=== PATIENT | male | born 1945 | race Caucasian/White ===

== ENCOUNTER 2021-08-11 15:50 | Inpatient (IN) ==
[2021-08-11] MEDS ORDERED: MoRPHine SULFATE 4 MG/ML 1 ML CARP\\VIAL IV STA ×2 (16:22→18:37)
[2021-08-11] MEDS ORDERED: cefTRIAXone SODIUM 2,000 MG/70 ML BAG IV STA (16:22)
[2021-08-11] MEDS ORDERED: ONDANSETRON INJ 2 MG/ML 2 ML VIAL IV STA (16:22)
[2021-08-11] MEDS ORDERED: KETOROLAC TROMETHAMINE 15 MG/ML VIAL IV STA (16:22)
--- NOTE | 2021-08-11 16:30 | Emergency Department Note ---
Impression & Plan SOB (shortness of breath), Weakness, Bilateral leg pain, Edema, Cellulitis ED Provider Note NAME: NEDA CURTIS AGE: 76 SEX: M : 1945 ARRIVES VIA: Walk-In INFORMANT: [Patient][son] ED PROVIDER(S): [Merrill Herrera MD] CHIEF COMPLAINT: Leg pain, weakness HISTORY OF PRESENT ILLNESS: The patient is a 76-year-old male who presents to the ER with bilateral leg pain that seems to be mostly in the thighs and knees. It has been ongoing for some time but has worsened in the last few days. He cannot sleep because of the pain, he cannot walk because of the pain. The pain seems a bit better when he first stands but then, his legs are too weak to stand for too long. Patient states the pain is severe at times. There has been no fever, no fall. No cough or congestion. The patient does feel short of breath with any type of exertion/ambulation. The patient has stopped his diuretic as he has a hard time with his urinary stream. His doctor is aware. The patient's son states that he has noticed some redness of the feet and toes, this is new. REVIEW OF SYSTEMS: See HPI for pertinent positives and negatives. A total of ten systems were reviewed and were otherwise negative. PMHx/PSHx: See Below SOCIAL HISTORY: See Below. PHYSICAL EXAM: GENERAL: Patient is in no acute distress. HEENT: No acute trauma, normocephalic atraumatic, mucous membranes moist, no nasal congestion, no scleral icterus. NECK: No stridor, no adenopathy, no meningismus, trachea is midline. LUNGS: Clear to auscultation bilaterally, no wheeze, no rhonchi, breath sounds equal. HEART: Without murmurs gallops or rubs, regular rate and rhythm. ABDOMEN: Soft, nontender, bowel sounds positive, no hernias, no peritonitis. EXTREMITIES: No cyanosis. Bilateral pedal edema which is significant. Patient does have erythema of both feet and of all his toes. Dry scaly skin is present about the lower extremities. There is some warmth to both feet. No drainage. NEUROLOGIC: Oriented x 3, no acute motor or sensory deficits, no focal weakness. SKIN: No rash, no jaundice, no diaphoresis. DIFFERENTIAL DIAGNOSIS: Cellulitis, DVT, edema, anemia, neurovascular compromise, hematoma, electrolyte imbalance, CHF, fluid overload, thyroid disorder, among others EMERGENCY DEPARTMENT COURSE/PROCEDURES: ECG: Indication was weakness. The ECG shows what appears to be a normal sinus rhythm with a rate of 77. There is some baseline artifact. There is no ST elevation, no PVCs. The QTc is 427. Continuous Cardiac Monitoring: An order was placed for continuous cardiac monitoring. The monitor shows a rate of 79 with normal sinus rhythm. MEDICAL DECISION MAKING: There is no leukocytosis or concerning anemia. There is a normal platelet count. No coagulopathy. Creatinine was a bit high at 1.49 but not in need of emergent attention. No concerning electrolyte abnormality. Lactic acid level was not elevated making ischemia/sepsis less likely. No concerning liver enzyme elevation. The patient appeared to be in a euthyroid state. ECG shows a normal sinus rhythm, no obvious ischemia. Cardiac enzyme testing x1 is not consistent with acute cardiac injury. Urinalysis does not show evidence for infection. Chest x-ray does not show pneumonia or obvious CHF. Bilateral lower extremity venous and arterial ultrasounds are pending. On exam, the patient had significant edema to both lower extremities with redness and warmth to both feet. The patient appears to be quite fluid overloaded. He may have early cellulitis of both feet. He has become weak, short of breath and can no longer really ambulate. A hospitalization is warranted. Patient was given IV morphine for pain as needed. He was given IV Zofran for nausea. He was given IV Toradol. He was given IV ceftriaxone and IV Lasix. I did speak with case management, I talked to the patient about his findings. A hospital stay for his findings/complaints is warranted. We await the results of the venous and arterial lower extremity ultrasounds. Past Med/Surg History Medical History Carotid artery hypersensitivity Trigeminal neuralgia pain Social History Smoking Status: Former smoker Preferred Language: Maltese Feels Safe at Home: Yes Allergies Allergies Allergy/AdvReac Type Severity Reaction Status Date / Time UNKNOWN ANTIBIOTIC AdvReac Severe GI SYMPTOMS Uncoded 01/19/16 16:11 Home Meds Home Medications Medication Instructions Recorded Confirmed ACID REFLEX PILL 1 tab PO DAILY #0 01/19/16 ASPIRIN (ASPIRIN EC) 325 mg PO DAILY #0 01/19/16 DORZOLAMIDE HCL-TIMOLOL MALEAT 1 drp OPB BID #10 ml 01/19/16 (COSOPT OPH) Propranolol (Inderal) 40 mg PO BID #0 tab 01/19/16 Results & Data (ED) Vital Signs Vital Signs - 24 hr 08/11/21 15:53 08/11/21 16:59 08/11/21 17:45 Temperature 36.2 C L Temperature Source Temporal Artery Scan Pulse Rate 87 Pulse Rate [Apical] 79 Pulse Rate from SpO2 Sensor Pulse Rhythm Regular Pulse Strength Normal Respiratory Rate 20 19 Respiratory Effort / Characteristics Non-Labored Spontaneous Respiratory Depth Normal Respiratory Pattern Regular Blood Pressure 150/76 H Blood Pressure [Right Arm] 137/65 Blood Pressure Mean 100 Blood Pressure Mean [Right Arm] 89 Blood Pressure Position Sitting Blood Pressure Position [Right Arm] Lying Pulse Oximetry 97 97 Oxygen Delivery Method Room Air Room Air Room Air Sepsis Recent Fever Within 48 Hours No Sepsis New/Unexplained Change in Mental Status No Sepsis Action Taken by Nursing No Action Required 08/11/21 17:53 08/11/21 18:02 Temperature Temperature Source Pulse Rate 90 74 Pulse Rate [Apical] Pulse Rate from SpO2 Sensor 73 Pulse Rhythm Pulse Strength Respiratory Rate 21 16 Respiratory Effort / Characteristics Respiratory Depth Respiratory Pattern Blood Pressure 133/63 Blood Pressure [Right Arm] Blood Pressure Mean 86 Blood Pressure Mean [Right Arm] Blood Pressure Position Blood Pressure Position [Right Arm] Pulse Oximetry 95 Oxygen Delivery Method Sepsis Recent Fever Within 48 Hours Sepsis New/Unexplained Change in Mental Status Sepsis Action Taken by [facility] Medications Current Medication List: was personally reviewed by me Laboratory Data Attestation: I reviewed the patient's lab results. Result diagrams: 08/11/21 16:50 08/11/21 16:50 Lab Results 08/11/21 08/11/21 08/11/21 Range/Units 16:50 16:50 16:50 WBC 7.27 (4.8-10.8) K/uL RBC 4.66 L (4.7-6.1) M/uL Hgb 14.3 (14.0-18.0) g/dL Hct 42.0 (42-52) % MCV 90.1 (80-100) fL MCH 30.7 (25-34) pg MCHC 34.0 (32-36) g/dL RDW Std Deviation 44.6 (36.4-46.3) fL RDW Coeff of Ernie 13.7 (11.5-14.5) % Plt Count 241 (130-400) K/uL MPV 9.3 (7.4-10.4) fL Immature Gran % (Auto) 0.3 % Neut % (Auto) 70.9 % Lymph % (Auto) 19.1 % [place] % (Auto) 5.4 % Eos % (Auto) 3.9 % Baso % (Auto) 0.4 % Neut # (Auto) 5.16 (1.4-6.5) K/uL Lymph # (Auto) 1.39 (1.2-3.4) K/uL [place] # (Auto) 0.39 (0.11-0.59) K/uL Eos # (Auto) 0.28 (0-0.5) K/uL Baso # (Auto) 0.03 (0-0.2) K/uL Immature Gran # (Auto) 0.02 (0.00-0.02) K/uL PT 10.4 (9.0-12.0) Seconds INR 1.0 (0.9-1.1) APTT 22.2 (21.0-31.0) Seconds PTT Ratio 0.8 Sodium 137 (136-145) mmol/L Potassium 4.3 (3.5-5.1) mmol/L Chloride 106 (98-107) mmol/L Carbon Dioxide 23 (21-32) mmol/L Anion Gap 8 (3-11) BUN 29 H (6-23) mg/dl Creatinine 1.49 H (0.6-1.4) mg/dl Est Cr Clr Drug Dosing Not Reportable Est GFR ( Amer) 52.8 ml/min Est GFR (Non-Af Amer) 45.6 ml/min BUN/Creatinine Ratio 19.5 (10-20) Glucose 113 H (70-99(Fasting)) mg/dl Lactate (0.4-2.0) mmol/L Calcium 9.1 (8.5-10.1) mg/dl Magnesium 2.0 (1.7-2.4) mg/dl Total Bilirubin 0.4 (0.2-1.0) mg/dl AST 14 (13-39) U/L ALT 12 (7-52) U/L Alkaline Phosphatase 80 (34-104) U/L Troponin I < 0.03 (0-0.04) ng/ml Total Protein 7.6 (6.0-8.3) gm/dl Albumin 4.1 (3.4-5.0) gm/dl Globulin 3.5 (2.5-4.0) gm/dl Albumin/Globulin Ratio 1.2 (0.9-2) TSH (0.300-4.500) uIu/ml Urine Color Urine Appearance (Clear) Urine pH (4.5-7.5) Ur Specific Sinclair (1.000-1.030) Urine Protein (Negative) Urine Glucose (UA) (Negative) Urine Ketones (Negative) Urine Blood (Negative) Urine Nitrite (Negative) Urine Bilirubin (Negative) Urine Urobilinogen (Negative) Ur Leukocyte Esterase (Negative) Urine WBC (Auto) (0-5) /hpf Urine RBC (Auto) (0-4) /hpf U Hyaline Cast (Auto) (0-5) /lpf U Epithel Cells (Auto) (0-5) /lpf Urine Bacteria (Auto) (Negative) 08/11/21 08/11/21 08/11/21 Range/Units 16:50 16:50 17:58 WBC (4.8-10.8) K/uL RBC (4.7-6.1) M/uL Hgb (14.0-18.0) g/dL Hct (42-52) % MCV (80-100) fL MCH (25-34) pg MCHC (32-36) g/dL RDW Std Deviation (36.4-46.3) fL RDW Coeff of Ernie (11.5-14.5) % Plt Count (130-400) K/uL MPV (7.4-10.4) fL Immature Gran % (Auto) % Neut % (Auto) % Lymph % (Auto) % [place] % (Auto) % Eos % (Auto) % Baso % (Auto) % Neut # (Auto) (1.4-6.5) K/uL Lymph # (Auto) (1.2-3.4) K/uL [place] # (Auto) (0.11-0.59) K/uL Eos # (Auto) (0-0.5) K/uL Baso # (Auto) (0-0.2) K/uL Immature Gran # (Auto) (0.00-0.02) K/uL PT (9.0-12.0) Seconds INR (0.9-1.1) APTT (21.0-31.0) Seconds PTT Ratio Sodium (136-145) mmol/L Potassium (3.5-5.1) mmol/L Chloride (98-107) mmol/L Carbon Dioxide (21-32) mmol/L Anion Gap (3-11) BUN (6-23) mg/dl Creatinine (0.6-1.4) mg/dl Est Cr Clr Drug Dosing Est GFR ( Amer) ml/min Est GFR (Non-Af Amer) ml/min BUN/Creatinine Ratio (10-20) Glucose (70-99(Fasting)) mg/dl Lactate 0.6 (0.4-2.0) mmol/L Calcium (8.5-10.1) mg/dl Magnesium (1.7-2.4) mg/dl Total Bilirubin (0.2-1.0) mg/dl AST (13-39) U/L ALT (7-52) U/L Alkaline Phosphatase (34-104) U/L Troponin I (0-0.04) ng/ml Total Protein (6.0-8.3) gm/dl Albumin (3.4-5.0) gm/dl Globulin (2.5-4.0) gm/dl Albumin/Globulin Ratio (0.9-2) TSH 2.269 (0.300-4.500) uIu/ml Urine Color Yellow Urine Appearance Clear (Clear) Urine pH 5.0 (4.5-7.5) Ur Specific Sinclair 1.018 (1.000-1.030) Urine Protein 1+ H (Negative) Urine Glucose (UA) Negative (Negative) Urine Ketones Negative (Negative) Urine Blood Negative (Negative) Urine Nitrite Negative (Negative) Urine Bilirubin Negative (Negative) Urine Urobilinogen Negative (Negative) Ur Leukocyte Esterase Negative (Negative) Urine WBC (Auto) 1-5 (0-5) /hpf Urine RBC (Auto) 0-4 (0-4) /hpf U Hyaline Cast (Auto) 1-5 (0-5) /lpf U Epithel Cells (Auto) 0-5 (0-5) /lpf Urine Bacteria (Auto) Negative (Negative) Administered Medications Discontinued Medications Furosemide (Furosemide 40 Mg/4 Ml Vial) 60 mg IV ONE ONE Stop: 08/11/21 17:34 Last Admin: 08/11/21 18:05 Dose: 60 mg Documented by: [id number] Ceftriaxone Sodium (Rocephin) 2,000 mg in 70 mls @ 140 mls/hr IV NOW STA Stop: 08/11/21 16:51 Last Infusion: 08/11/21 18:37 Dose: 0 mls/hr Documented by: [id number] Admin: 08/11/21 18:05 Dose: 140 mls/hr Documented by: [id number] Ketorolac Tromethamine (Ketorolac Tromethamine 15 Mg/Ml Vial) 15 mg IV NOW STA Stop: 08/11/21 16:23 Last Admin: 08/11/21 17:43 Dose: 15 mg Documented by: [id number] Morphine Sulfate (Morphine Sulfate 4 Mg/Ml 1 Ml Carp\Vial) 4 mg IV NOW STA Stop: 08/11/21 16:23 Last Admin: 08/11/21 17:43 Dose: 4 mg Documented by: [id number] Morphine Sulfate (Morphine Sulfate 4 Mg/Ml 1 Ml Carp\Vial) 4 mg IV NOW STA Stop: 08/11/21 18:38 Last Admin: 08/11/21 18:42 Dose: 4 mg Documented by: [id number] Ondansetron HCl (Ondansetron Inj 2 Mg/Ml 2 Ml Vial) 4 mg IV NOW STA Stop: 08/11/21 16:23 Last Admin: 08/11/21 17:43 Dose: 4 mg Documented by: [id number] Imaging Data Radiologist's Impression: Chest X-Ray 08/11/21 16:22 SINGLE VIEW CHEST CLINICAL HISTORY: Generalized weakness. FINDINGS: An AP, portable, upright chest radiograph is obtained. No prior studies are available for comparison at the time of dictation. The heart is top normal for projection noting atherosclerotic calcification of the thoracic aorta. Bibasilar opacities likely represent atelectasis. No large pleural eff usion is identified. No pneumothorax is seen. The skeletal structures are osteopenic. The bony thorax is grossly intact. IMPRESSION: Bibasilar opacities likely represent atelectasis. Clinical correlation will be required. ACT 112: Negative or not required by law. Electronically signed by: Merrill Phillip M.D. 08/11/2021 5:38 PM Bilateral arterial and venous lower extremity ultrasounds are pending. Discharge Plan Visit Data Chief Complaint: Leg Injury/Pain Stated Complaint: SHAKINESS, PAIN ABOVE BOTH KNEES ED Provider: Merrill Herrera Discharge Problem: SOB (shortness of breath), Weakness, Bilateral leg pain, Edema, Cellulitis Patient Disposition: Admitted As Inpatient Condition: Fair Forms Stand Alone Forms: [facility] [employer] Prescriptions Prescriptions: No Action ACID REFLEX PILL 1 tab PO DAILY Qty: 0 RF: 0 ASPIRIN (ASPIRIN EC) 325 MG tablet 325 mg PO DAILY Qty: 0 RF: 0 DORZOLAMIDE HCL-TIMOLOL MALEAT (COSOPT OPH) 1 GLENN SOLTAB 1 drp OPB BID Qty: 10 RF: 3 Propranolol (Inderal) 20 MG tablet 40 mg PO BID Qty: 0 RF: 0 Referrals Referrals: PCP,NO [Physician] - Discharge Problem: Edema Qualifiers: Edema type: unspecified Qualified Code(s): R60.9 - Edema, unspecified Cellulitis Qualifiers: Site of cellulitis: extremity Site of cellulitis of extremity: lower extremity Laterality: unspecified laterality Qualified Code(s): L03.119 - Cellulitis of unspecified part of limb
[2021-08-11 17:10] LABS: Basophils # (auto) 0.03 K/uL (0-0.2); Basophils % (auto) 0.4 %; Eosinophils # (auto) 0.28 K/uL (0-0.5); Eosinophils % (auto) 3.9 %; Hemoglobin 14.3 g/dL (14.0-18.0); Immature Granulocytes # (auto) 0.02 K/uL (0.00-0.02); Immature Granulocytes % (auto) 0.3 %; Lymphocytes # (auto) 1.39 K/uL (1.2-3.4); Lymphocytes % (auto) 19.1 %; Mean Corpuscular Hemoglobin 30.7 pg (25-34); Mean Corpuscular Volume 90.1 fL (80-100); Mean Platelet Volume 9.3 fL (7.4-10.4); Monocytes # (auto) 0.39 K/uL (0.11-0.59); Monocytes % (auto) 5.4 %; Neutrophils # (auto) 5.16 K/uL (1.4-6.5); Neutrophils % (auto) 70.9 %; Platelet Count 241 K/uL (130-400); RDW Coefficient of Variation 13.7 % (11.5-14.5); RDW Standard Deviation 44.6 fL (36.4-46.3); Red Blood Count 4.66 M/uL (4.7-6.1); White Blood Count 7.27 K/uL (4.8-10.8)
[2021-08-11 17:17] LABS: Partial Thromboplastin Ratio 0.8; Partial Thromboplastin Time 22.2 Seconds (21.0-31.0); Prothrombin Time 10.4 Seconds (9.0-12.0)
[2021-08-11 17:29] LABS: Troponin I < 0.03 ng/ml (0-0.04)
[2021-08-11 17:31] LABS: Alanine Aminotransferase 12 U/L (7-52); Albumin Globulin Ratio 1.2 (0.9-2); Albumin Level 4.1 gm/dl (3.4-5.0); Alkaline Phosphatase 80 U/L (34-104); Anion Gap 8 (3-11); Aspartate Aminotransferase 14 U/L (13-39); BUN Creatinine Ratio 19.5 (10-20); Bilirubin,Total 0.4 mg/dl (0.2-1.0); Blood Urea Nitrogen 29 mg/dl (6-23); Calcium 9.1 mg/dl (8.5-10.1); Carbon Dioxide 23 mmol/L (21-32); Chloride 106 mmol/L (98-107); Est GFR (African American) 52.8 ml/min; Est GFR (Non-African American) 45.6 ml/min; Globulin 3.5 gm/dl (2.5-4.0); Glucose 113 mg/dl (70-99(Fasting)); Potassium 4.3 mmol/L (3.5-5.1); Sodium 137 mmol/L (136-145); Total Protein 7.6 gm/dl (6.0-8.3)
[2021-08-11] MEDS ORDERED: FUROSEMIDE 40 MG/4 ML VIAL IV ONE (17:33)
--- NOTE | 2021-08-11 17:40 | XRay Report ---
SINGLE VIEW CHEST CLINICAL HISTORY: Generalized weakness. FINDINGS: An AP, portable, upright chest radiograph is obtained. No prior studies are available for c omparison at the time of dictation. The heart is top normal for projection noting atherosclerotic ca lcification of the thoracic aorta. Bibasilar opacities likely represent atelectasis. No large pleural effusion is identified. No pneumothorax is seen. The skeletal structures are osteopenic. The bony th orax is grossly intact. IMPRESSION: Bibasilar opacities likely represent atelectasis. Clinical correlation will be required. ACT 112: Negative or not required by law. Electronically signed by: eMrrill Phillip M.D. 08/11/2021 5:38 PM
[2021-08-11 18:09] LABS: Appearance Urine Clear (Clear); Bacteria Urine Automated Negative (Negative); Bilirubin Urine Negative (Negative); Blood Urine Negative (Negative); Color Urine Yellow; Epithelial Cell Urine Auto 0-5 /lpf (0-5); Glucose Urine UA Negative (Negative); Ketones Urine Negative (Negative); Leukocyte Esterase Urine Negative (Negative); Nitrite Urine Negative (Negative); Protein Urine 1+ (Negative); RBC Urine Automated 0-4 /hpf (0-4); Specific Gravity Urine 1.018 (1.000-1.030); Urobilinogen Urine Negative (Negative)
[2021-08-11] MEDS ORDERED: MoRPHine SULFATE 4 MG/ML 1 ML CARP\\VIAL IV PRN (18:37)
--- NOTE | 2021-08-11 19:56 | Ultrasound Report ---
ULTRASOUND BILATERAL LOWER EXTREMITY VENOUS CLINICAL HISTORY: Lower extremity edema. COMPARISON STUDY: No priors. TECHNIQUE: Real-time, grayscale, and color Doppler sonography of the deep veins of the right and left lower extremity was performed from the inguinal crease to the calf. Compression and augmentation wer e utilized. FINDINGS: There is no sonographic evidence of deep venous thrombosis identified in the right or left lower extremity. The common femoral, superficial femoral, and popliteal veins are patent and normally compressible bilaterally. The greater saphenous vein and the profunda femoris vein at the junction w ith the common femoral vein are clear in both legs. The visualized calf veins are patent bilaterally. IMPRESSION: There is no sonographic evidence of deep venous thrombosis identified in the right or lef t lower extremity. ACT 112: Negative or not required by law. Electronically signed by: Merrill Phillip M.D. 08/11/2021 7:54 PM
--- NOTE | 2021-08-11 21:05 | Ultrasound Report ---
ULTRASOUND BILATERAL LOWER EXTREMITY ARTERIAL CLINICAL HISTORY: Lower extremity edema and pain. COMPARISON STUDY: No priors. TECHNIQUE: Real-time grayscale and color Doppler sonography of the arteries of the right and left low er extremities performed from the inguinal crease to the foot. Ankle-brachial indices were not perfor med. FINDINGS: Right lower extremity: Atherosclerotic plaque and irregularity are seen throughout the arteries of th e right lower extremity. There are triphasic waveforms in the common femoral artery with velocities m easuring up to 133 cm/s. The profunda femoris artery is patent with velocities measuring up to 121 cm /s. There are triphasic to biphasic waveforms throughout the superficial femoral and popliteal arteri es. Velocities in the superficial femoral artery measure up to 123 cm/s in velocities in the poplitea l artery measure up to 68 cm/s. There is three-vessel runoff to the foot. Velocities in the calf susan john measure up to 110 cm/s. The dorsalis pedis artery is patent with velocities measuring up to 44 c m/s. Soft tissue edema is noted in the right leg. Left lower extremity: Atherosclerotic plaque and irregularity are seen throughout the arteries of the left lower extremity. There are triphasic waveforms in the left common femoral artery with velocitie s measuring up to 166 cm/s. The profunda femoris artery is patent with velocities measuring up to 150 cm/s. Triphasic to biphasic waveforms are seen throughout the left superficial femoral and popliteal arteries. There is slight blunting of the arterial upstroke in the superficial femoral and popliteal arteries. Velocities in the superficial femoral artery measure up to 185 cm/s, and velocities in the popliteal artery measure up to 72 cm/s. There is three-vessel runoff to the foot with blunted arteri al upstroke in the calf vessels. Velocities within the calf arteries measure up to 64 cm/s. The dorsa lis pedis artery is patent with velocities measuring up to 46 cm/s. Soft tissue edema is noted in the calf. IMPRESSION: Findings of peripheral vascular disease as above with no sonographic evidence of high-gra de stenosis or focal vessel occlusion throughout the arteries of the right or left lower extremity. Dictated: 08/11/2021 8:01 PM Transcribed: 08/11/2021 8:24 PM Dorinda [id number] [email or web address] Electronically signed by: Merrill Phillip M.D. 08/11/2021 9:04 PM
--- NOTE | 2021-08-11 21:45 | History & Physical Report ---
Date of Service August 11, 2021 Assessment & Plan (1) Leg swelling: Plan: Bilateral LE cellulitis Underlying chronic venous insufficiency ? Amlodipine contributory to increase leg swelling Rule out right-sided heart failure from possible underlying pulmonary hyperten blayne given history COPD No sepsis for now Dystrophic nails and dry feet secondary to PVD hypertension, stable hx TIA COPD, lung status at baseline CRI (unknown baseline ) BPH Hyperglycemia rule out DM past tobacco abuse. Medical telemetry Doxycycline Decrease maintenance amlodipine dose TTE RE chronic S OB rule out pulmonary hypertension Inpatient Podiatry consultation as per patient family request for evaluation and care. Obtain outpatient PCP records/recent labs Check hemoglobin A1c PT OT eval DVT prophylaxis. Heparin subcu Full code Patient daughter requesting updates from providers. Ms. Ebonie Christopher, contact # [phone]. Text document was generated using [employer] voice recognition software. It may contain grammatical or spelling errors. Kindly contact undersigned for clarification of any documentation item in question. History of Present Illness Chief Complaint: Bilateral leg swelling Primary Care Provider: Celeste Rahman DO BilateralHistory obtained from patient, family, and records. Medical history significant for hypertension, TIA, COPD, CRI (unknown baseline ), BPH, venous insufficiency, past tobacco abuse. Few days ago, patient complained of worsening leg swelling and redness along with pain. No chest pain. Usual shortness of breath. No fluid retention as per patient. No fever, no chills. Family unhappy with patient's feet. 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 Ceftriaxone administered at the ER for cellulitis. 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 100 mcg-umeclid 1 ea INHALATION DAILY 08/11/21 08/11/21 History 62.5 mcg-vilant 25 mcg inhalat.powder (Trelegy Ellipta) furosemide 20 mg tablet 20 mg PO DAILY PRN 08/11/21 08/11/21 History lisinopril 20 mg tablet 20 mg PO DAILY 08/11/21 08/11/21 History metoprolol tartrate 25 mg tablet 25 mg PO BID 08/11/21 08/11/21 History tamsulosin 0.4 mg capsule 0.4 mg PO DAILY 08/11/21 08/11/21 History Past Med/Surg History Medical History Carotid artery hypersensitivity Trigeminal neuralgia pain Social History Smoking Status: Former smoker Hx Alcohol Use: No Hx Substance Use: No Preferred Language: Kazakh Communication Ability: Effective Predatory Game Hunter Required: No Beliefs That Will Affect Care: None Current Living Situation: Family Current Living Situation Comment: Lives with son Other Information That Helps Us Care for You: No Feels Safe at Home: Yes Safety Concerns: Feels Safe At This Time Assistive Devices: Denture - Upper and Denture - Lower Review of Systems Review of Systems: As per HPI, all 10 systems reviewed, all other ROS negative Physical Exam Physical Exam: GENERAL: Comfortable, obese, masklike facies, no respiratory distress SKIN: Normal color, warm HEENT: Alopecia, [place] palpebral conjunctivae, no ptosis, dry buccal mucosa NECK : Supple, no tenderness CHEST : Decreased breath sounds, no tenderness HEART : RRR, no obvious murmurs ABDOMEN: Some distention, nontender EXTREMITIES : Bilateral LE swelling with minimal tenderness, erythematous patches over the legs, dystrophic toenails, dry cracking skin on lateral and plantar aspects of the feet NEUROLOGIC : Coherent, no facial asymmetry, rest tremors right upper extremity, gait and stance not assessed Results & Data Results & Data ([facility]) Vital Signs (Past 12 Hours) Vital Signs Temp Pulse Pulse Resp BP BP Pulse Ox 08/11/21 21:00 57 L 18 122/69 97 08/11/21 19:00 37.1 C 74 20 135/82 97 08/11/21 18:02 74 16 133/63 95 08/11/21 17:53 90 21 08/11/21 17:45 79 19 137/65 97 08/11/21 15:53 36.2 C L 87 20 150/76 H 97 Laboratory Results Laboratory Results WBC 7.27 K/uL (4.8-10.8) 08/11/21 16:50 RBC 4.66 M/uL (4.7-6.1) L 08/11/21 16:50 Hgb 14.3 g/dL (14.0-18.0) 08/11/21 16:50 Hct 42.0 % (42-52) 08/11/21 16:50 MCV 90.1 fL (80-100) 08/11/21 16:50 MCH 30.7 pg (25-34) 08/11/21 16:50 MCHC 34.0 g/dL (32-36) 08/11/21 16:50 RDW Std Deviation 44.6 fL (36.4-46.3) 08/11/21 16:50 RDW Coeff of Ernie 13.7 % (11.5-14.5) 08/11/21 16:50 Plt Count 241 K/uL (130-400) 08/11/21 16:50 MPV 9.3 fL (7.4-10.4) 08/11/21 16:50 Immature Gran % (Auto) 0.3 % 08/11/21 16:50 Neut % (Auto) 70.9 % 08/11/21 16:50 Lymph % (Auto) 19.1 % 08/11/21 16:50 [place] % (Auto) 5.4 % 08/11/21 16:50 Eos % (Auto) 3.9 % 08/11/21 16:50 Baso % (Auto) 0.4 % 08/11/21 16:50 Neut # (Auto) 5.16 K/uL (1.4-6.5) 08/11/21 16:50 Lymph # (Auto) 1.39 K/uL (1.2-3.4) 08/11/21 16:50 [place] # (Auto) 0.39 K/uL (0.11-0.59) 08/11/21 16:50 Eos # (Auto) 0.28 K/uL (0-0.5) 08/11/21 16:50 Baso # (Auto) 0.03 K/uL (0-0.2) 08/11/21 16:50 Immature Gran # (Auto) 0.02 K/uL (0.00-0.02) 08/11/21 16:50 PT 10.4 Seconds (9.0-12.0) 08/11/21 16:50 INR 1.0 (0.9-1.1) 08/11/21 16:50 APTT 22.2 Seconds (21.0-31.0) 08/11/21 16:50 PTT Ratio 0.8 08/11/21 16:50 Sodium 137 mmol/L (136-145) 08/11/21 16:50 Potassium 4.3 mmol/L (3.5-5.1) 08/11/21 16:50 Chloride 106 mmol/L (98-107) 08/11/21 16:50 Carbon Dioxide 23 mmol/L (21-32) 08/11/21 16:50 Anion Gap 8 (3-11) 08/11/21 16:50 BUN 29 mg/dl (6-23) H 08/11/21 16:50 Creatinine 1.49 mg/dl (0.6-1.4) H 08/11/21 16:50 Est Cr Clr Drug Dosing Not Reportable 08/11/21 16:50 Est GFR ( Amer) 52.8 ml/min 08/11/21 16:50 Est GFR (Non-Af Amer) 45.6 ml/min 08/11/21 16:50 BUN/Creatinine Ratio 19.5 (10-20) 08/11/21 16:50 Glucose 113 mg/dl (70-99(Fasting)) H 08/11/21 16:50 Lactate 0.6 mmol/L (0.4-2.0) 08/11/21 16:50 Calcium 9.1 mg/dl (8.5-10.1) 08/11/21 16:50 Magnesium 2.0 mg/dl (1.7-2.4) 08/11/21 16:50 Total Bilirubin 0.4 mg/dl (0.2-1.0) 08/11/21 16:50 AST 14 U/L (13-39) 08/11/21 16:50 ALT 12 U/L (7-52) 08/11/21 16:50 Alkaline Phosphatase 80 U/L (34-104) 08/11/21 16:50 Troponin I < 0.03 ng/ml (0-0.04) 08/11/21 16:50 Total Protein 7.6 gm/dl (6.0-8.3) 08/11/21 16:50 Albumin 4.1 gm/dl (3.4-5.0) 08/11/21 16:50 Globulin 3.5 gm/dl (2.5-4.0) 08/11/21 16:50 Albumin/Globulin Ratio 1.2 (0.9-2) 08/11/21 16:50 TSH 2.269 uIu/ml (0.300-4.500) 08/11/21 16:50 Urine Color Yellow 08/11/21 17:58 Urine Appearance Clear (Clear) 08/11/21 17:58 Urine pH 5.0 (4.5-7.5) 08/11/21 17:58 Ur Specific [place] 1.018 (1.000-1.030) 08/11/21 17:58 Urine Protein 1+ (Negative) H 08/11/21 17:58 Urine Glucose (UA) Negative (Negative) 08/11/21 17:58 Urine Ketones Negative (Negative) 08/11/21 17:58 Urine Blood Negative (Negative) 08/11/21 17:58 Urine Nitrite Negative (Negative) 08/11/21 17:58 Urine Bilirubin Negative (Negative) 08/11/21 17:58 Urine Urobilinogen Negative (Negative) 08/11/21 17:58 Ur Leukocyte Esterase Negative (Negative) 08/11/21 17:58 Urine WBC (Auto) 1-5 /hpf (0-5) 08/11/21 17:58 Urine RBC (Auto) 0-4 /hpf (0-4) 08/11/21 17:58 U Hyaline Cast (Auto) 1-5 /lpf (0-5) 08/11/21 17:58 U Epithel Cells (Auto) 0-5 /lpf (0-5) 08/11/21 17:58 Urine Bacteria (Auto) Negative (Negative) 08/11/21 17:58 SARS-CoV-2, RNA, NAAT NEGATIVE (NEGATIVE) 08/11/21 19:42 Impressions Chest X-Ray 08/11/21 16:22 SINGLE VIEW CHEST CLINICAL HISTORY: Generalized weakness. FINDINGS: An AP, portable, upright chest radiograph is obtained. No prior studies are available for comparison at the time of dictation. The heart is top normal for projection noting atherosclerotic calcification of the thoracic aorta. Bibasilar opacities likely represent atelectasis. No large pleural effusion is identified. No pneumothorax is seen. The skeletal structures are osteopenic. The bony thorax is grossly intact. IMPRESSION: Bibasilar opacities likely represent atelectasis. Clinical correlation will be required. ACT 112: Negative or not required by law. Electronically signed by: Merrill Phillip M.D. 08/11/2021 5:38 PM Venous Doppler Study 08/11/21 16:22 ULTRASOUND BILATERAL LOWER EXTREMITY VENOUS CLINICAL HISTORY: Lower extremity edema. COMPARISON STUDY: No priors. TECHNIQUE: Real-time, grayscale, and color Doppler sonography of the deep veins of the right and left lower extremity was performed from the inguinal crease to the calf. Compression and augmentation were utilized. FINDINGS: There is no sonographic evidence of deep venous thrombosis identified in the right or left lower extremity. The common femoral, superficial femoral, and popliteal veins are patent and normally compressible bilaterally. The greater saphenous vein and the profunda femoris vein at the junction with the common femoral vein are clear in both legs. The visualized calf veins are patent bilaterally. IMPRESSION: There is no sonographic evidence of deep venous thrombosis identified in the right or left lower extremity. ACT 112: Negative or not required by law. Electronically signed by: Merrill Phillip M.D. 08/11/2021 7:54 PM Duplex Scan Lower Extremity Artery 08/11/21 16:30 ULTRASOUND BILATERAL LOWER EXTREMITY ARTERIAL CLINICAL HISTORY: Lower extremity edema and pain. COMPARISON STUDY: No priors. TECHNIQUE: Real-time grayscale and color Doppler sonography of the arteries of the right and left lower extremities performed from the inguinal crease to the foot. Ankle-brachial indices were not performed. FINDINGS: Right lower extremity: Atherosclerotic plaque and irregularity are seen throughout the arteries of the right lower extremity. There are triphasic waveforms in the common femoral artery with velocities measuring up to 133 cm/s. The profunda femoris artery is patent with velocities measuring up to 121 cm/s. There are triphasic to biphasic waveforms throughout the superficial femoral and popliteal arteries. Velocities in the superficial femoral artery measure up to 123 cm/s in velocities in the popliteal artery measure up to 68 cm/s. There is three-vessel runoff to the foot. Velocities in the calf arteries measure up to 110 cm/s. The dorsalis pedis artery is patent with velocities measuring up to 44 cm/s. Soft tissue edema is noted in the right leg. Left lower extremity: Atherosclerotic plaque and irregularity are seen throughout the arteries of the left lower extremity. There are triphasic waveforms in the left common femoral artery with velocities measuring up to 166 cm/s. The profunda femoris artery is patent with velocities measuring up to 150 cm/s. Triphasic to biphasic waveforms are seen throughout the left superficial femoral and popliteal arteries. There is slight blunting of the arterial upstroke in the superficial femoral and popliteal arteries. Velocities in the superficial femoral artery measure up to 185 cm/s, and velocities in the popliteal artery measure up to 72 cm/s. There is three-vessel runoff to the foot with blunted arterial upstroke in the calf vessels. Velocities within the calf arteries measure up to 64 cm/s. The dorsalis pedis artery is patent with velocities measuring up to 46 cm/s. Soft tissue edema is noted in the calf. IMPRESSION: Findings of peripheral vascular disease as above with no sonographic evidence of high-grade stenosis or focal vessel occlusion throughout the arteries of the right or left lower extremity. Dictated: 08/11/2021 8:01 PM Transcribed: 08/11/2021 8:24 PM Dorinda [id number] [email or web address] Electronically signed by: Merrill Phillip M.D. 08/11/2021 9:04 PM Diagnostic Findings EKG as per my interpretation: Rate 75, NSR, normal axis, no ischemia
[2021-08-11] MEDS ORDERED: DOXYCYCLINE HYCLATE 100 MG in DEXTROSE 5% 100 ML IV STA (21:47)
--- NOTE | 2021-08-11 22:07 | XRay Report ---
XR humerus RT 2V CLINICAL HISTORY: pain TECHNIQUE: 2 radiographic views of the right humerus were obtained. Comparison: None available at the time of this dictation. FINDINGS: There is no evidence for fracture, subluxation or dislocation. There is normal anatomic alignment of the bones. The visualized portion of the shoulder and elbow joints are unremarkable. There is normal bone mineralization. The soft tissues are unremarkable. IMPRESSION: No acute osseous injury ACT 112: Negative or not required by law. Electronically signed by: Mark Currie M.D. 08/11/2021 10:06 PM
[2021-08-11] MEDS ORDERED: PROMETHAZINE HCL 12.5 MG in SODIUM CHLORIDE 0.9% 50 ML IV STA (22:17)
[2021-08-11] MEDS ORDERED: PROMETHAZINE HCL INJ 25 MG/ML 1 ML VIAL ONE (22:31)
[2021-08-11] MEDS ORDERED: PROMETHAZINE HCL 12.5 MG in SODIUM CHLORIDE 0.9% 50 ML IV PRN (23:08)
[2021-08-11] MEDS: ACETAMINOPHEN 325 MG TAB PO STA ×2 (23:12→23:18)
[2021-08-12] MEDS: HEPARIN SOD 5,000 UNIT/0.5 ML VIAL SQ SCH ×3 (00:16→14:48)
[2021-08-12] MEDS: traMADol HCL 50 MG TABLET PO PRN ×3 (00:19→15:10)
[2021-08-12 07:25] LABS: Mean Corpuscular Hgb Conc 34.1 g/dL (32-36); Mean Platelet Volume 9.4 fL (7.4-10.4); Platelet Count 209 K/uL (130-400)
[2021-08-12] MEDS ORDERED: PERFLUTREN LIPID MICROSPHERE (DEFINITY) IV ONE (07:33)
[2021-08-12 07:49] LABS: Basophils # (auto) 0.03 K/uL (0-0.2); Basophils % (auto) 0.5 %; Eosinophils # (auto) 0.19 K/uL (0-0.5); Eosinophils % (auto) 3.2 %; Hematocrit (blood only) 36.1 % (42-52); Hemoglobin 12.3 g/dL (14.0-18.0); Immature Granulocytes # (auto) 0.01 K/uL (0.00-0.02); Immature Granulocytes % (auto) 0.2 %; Lymphocytes % (auto) 21.8 %; Mean Corpuscular Hemoglobin 30.8 pg (25-34); Mean Corpuscular Volume 90.3 fL (80-100); Monocytes # (auto) 0.58 K/uL (0.11-0.59); Monocytes % (auto) 9.7 %; Neutrophils # (auto) 3.84 K/uL (1.4-6.5); Neutrophils % (auto) 64.6 %; RDW Coefficient of Variation 13.9 % (11.5-14.5); RDW Standard Deviation 45.9 fL (36.4-46.3); White Blood Count 5.95 K/uL (4.8-10.8)
[2021-08-12 07:54] LABS: BUN Creatinine Ratio 15.4 (10-20); Calcium 8.4 mg/dl (8.5-10.1); Creatinine Clr Calc Pharmacy 30.9 ml/min; Est GFR (African American) 32.8 ml/min; Est GFR (Non-African American) 28.3 ml/min; Potassium 4.4 mmol/L (3.5-5.1)
[2021-08-12] MEDS: UMECLIDINIUM/VILANTEROL 62.5/25MCG 7 PUFFS/INHALER INH SCH (08:08)
[2021-08-12] MEDS: amLODIPine BESYLATE 5 MG TAB PO SCH (08:08)
[2021-08-12] MEDS: DOXYCYCLINE HYCLATE 100 MG CAP PO SCH ×2 (08:08→20:02)
[2021-08-12] MEDS: TAMSULOSIN HCL 0.4 MG CAP PO SCH (08:08)
[2021-08-12] MEDS: METOPROLOL TARTRATE 25 MG TAB PO SCH ×2 (08:08→20:02)
[2021-08-12] MEDS: FLUTICASONE FUROATE 100MCG 14 PUFFS/INHALER INH SCH (08:09)
[2021-08-12] MEDS: BRIMONIDINE TARTRATE 0.2% 5ML OPB SCH ×2 (08:10→20:01)
[2021-08-12] MEDS: DORZOLAMIDE/TIMOLOL 22.3/6.8MG/ML 10 ML BTL OPB SCH ×2 (08:10→20:01)
[2021-08-12 08:32] LABS: Estimated Average Glucose 128 mg/dl; Hemoglobin A1C 6.1 % (4.5-5.6)
[2021-08-12] MEDS ORDERED: ASPIRIN 325 MG ECTAB PO SCH (09:00)
[2021-08-12] MEDS ORDERED: NON-FORMULARY MEDICATION (Fluticasone-Umeclidin-Vilanter [Trelegy Ellipta] 100-62.5-25 mcg INH SCH (09:00)
[2021-08-12] MEDS ORDERED: Flu Vaccine-High Dose (Fluzone-HD) PF 65+ 0.7mL SYR IM ONE (09:15)
[2021-08-12] MEDS ORDERED: PNEUMOCOCCAL Polysaccharide Vaccine 25mcg/0.5mL vial/Syr IM ONE (09:15)
--- NOTE | 2021-08-12 12:53 | Podiatry Consultation ---
Date of Consultation August 12, 2021 Assessment & Plan (1) Leg swelling: toenail care provided as stated recommend outpatient f/u in 3months thank you for this kind consult (2) Edema: Edema type: unspecified Qualified Code(s): R60.9 - Edema, unspecified (3) Peripheral vascular disease: (4) Tinea unguium: History of Present Illness Reason for Consultation: podiatric foot care Attending Physician: Bill Torres MD History of Present Illness Patient is a pleasant 76 year old patient seen at bedside today, he noted to me he was not feeling well and had not eaten his lunch. 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 Toenails appear to have not had care in sometime and there is significant dry skin, no open wounds present. Patient will benefit from outpatient periodic care Provided toenail debridement today, this is recommended every 3months and will recommend 3 month f/u in office Allergies Allergy/AdvReac Type Severity Reaction Status Date / Time UNKNOWN ANTIBIOTIC AdvReac Severe GI SYMPTOMS Uncoded 08/11/21 20:52 Home Medications Medication Instructions Recorded Confirmed Type amlodipine 10 mg tablet 10 mg PO DAILY 08/11/21 08/11/21 History brimonidine 0.2 % eye drops 1 drp OPB BID 08/11/21 08/11/21 History dorzolamide 22.3 mg-timolol 6.8 1 drp OPB BID 08/11/21 08/11/21 History mg/mL eye drops fluticasone fur. 100 mcg-umeclid 1 ea INHALATION DAILY 08/11/21 08/11/21 History 62.5 mcg-vilant 25 mcg inhalat.powder (Trelegy Ellipta) furosemide 20 mg tablet 20 mg PO DAILY PRN 08/11/21 08/11/21 History lisinopril 20 mg tablet 20 mg PO DAILY 08/11/21 08/11/21 History metoprolol tartrate 25 mg tablet 25 mg PO BID 08/11/21 08/11/21 History tamsulosin 0.4 mg capsule 0.4 mg PO DAILY 08/11/21 08/11/21 History Patient History Medical History Carotid artery hypersensitivity Trigeminal neuralgia pain Social History Smoking Status: Former smoker Hx Alcohol Use: No Hx Substance Use: No Preferred Language: Romansh Communication Ability: Effective Wardrobe Attendant Required: No Beliefs That Will Affect Care: None Current Living Situation: Family Current Living Situation Comment: Lives with son Other Information That Helps Us Care for You: No Feels Safe at Home: Yes Safety Concerns: Feels Safe At This Time Assistive Devices: None Physical Exam Skin: skin was dry with patches of xerosis dorsally and in between the toes, likely related to patient's inablity to provide self, no open wounds on the feet interspaces intact without maceration difficult to palpate pedal pulses secondary to swelling, pedal hair was absent, skin turgo good to all distal digits, I reviewed arterial studies toenails elongated with subungual debris, thickening, and incurvation, debridement performed on all digits with toenail clippers, there was minimal bleeding of the left hallux lateral nail border secondary to incurvation, cleaned with alcohol and dried with gauze, no further bleeding noted Results & Data ([facility]) Vital Signs (Past 12 Hours) Vital Signs Temp Pulse Pulse Resp BP BP Pulse Ox 08/12/21 11:30 36.2 C L 60 18 80/44 L 95 08/12/21 11:20 92/43 L 08/12/21 08:00 36.5 C 73 20 103/63 92 08/12/21 02:14 36.7 C 68 20 116/65 93
[2021-08-12] MEDS ORDERED: SODIUM CHLORIDE 0.9% 1000ML 1,000 ML IV SCH (13:00)
--- NOTE | 2021-08-12 15:34 | Hospitalist Progress Note ---
Date of Service August 12, 2021 Assessment & Plan (1) Leg swelling: Plan: Bilateral LE cellulitis associated with tenderness Possible due to high dose amlodipine (10mg) Arterial doppler showed findings of peripheral vascular disease as above with no sonographic evidence of high-grade stenosis or focal vessel occlusion throughout the arteries of the right or left lower extremity. Venous doppler showed no sonographic evidence of deep venous thrombosis id entified in the right or left lower extremity. Echo showed no wall motion abnormality with EF 55-60% Received Lasix 60mg IV on admisison Will hold on any additional lasix due to elevate creatinine Podiatry on board Toenail care was done by podiatry - Follow up in 3 months Continue tramadol prn Possible Cellulitis Pt said that yesterday his leg was erythematous Received Rocephin in the ER Currently on Doxycycline BID Leg improves significantly Blood cx pending JONATHON Creatinine increased to 2.2 today Possible related to diuretic ( lasix 60mg ) in the setting of hypotension (BP was 80/44) Will hold lasix due to elevate creatinine Will avoid nephrotoxic agents Nephrology consult Consider to get a renal u/s Continue monitor BMP COPD Continue outpatient inhaler Stable HTN BP in the low side early , improved Continue Amlodipine 2.5 mg Hyperglycemia Hba1c 6.1 on 08/12/21 Continue monitor glucose DVT prophylaxis. Heparin subcu Code status Full code Patient daughter requesting updates from providers. Ms. Ebonie Christopher, contact # [phone]. Admission and Anticipated Discharge Date Admission Date: August 11, 2021 Subjective Pt was seen and examined for follow up of LE edema Lying in bed with no acute distress Pt said that he feels ok He said that he is having pain in his lower extremities Denies any chest pain, dizziness, palpitation and fever Review of Systems Review of Systems: All systems reviewed & are unremarkable except as noted in Subjective Physical Exam Physical Exam: General- No acute distress Head- atraumatic Eyes- PERRL, EOMI, ENT- oropharynx clear Neck- supple, no JVD Lungs- clear to auscultation Heart- regular rhythm; no murmur Abdomen- normal bowel sounds, soft, nontender Extremities- no calf tenderness, +B/L LE edema, No erythema, dry cracking skin on lateral and plantar aspects of the feet Neuro- alert, oriented x 3; PERRL, EOMI; no facial palsy; no dysarthria Skin- warm & dry Results & Data Results & Data ([facility]) Vital Signs (Past 12 Hours) Vital Signs Temp Pulse Pulse Pulse Resp BP BP 08/12/21 14:59 36.6 C 73 18 152/81 H 08/12/21 12:56 58 L 102/64 08/12/21 11:30 36.2 C L 60 18 80/44 L 08/12/21 11:20 92/43 L 08/12/21 08:00 36.5 C 64 73 20 103/63 Pulse Ox 08/12/21 14:59 92 08/12/21 12:56 08/12/21 11:30 95 08/12/21 11:20 08/12/21 08:00 92
[2021-08-12] MEDS: ACETAMINOPHEN 325 MG TAB PO PRN (17:34)
--- NOTE | 2021-08-12 18:02 | Nephrology Consultation ---
Date of Consultation August 12, 2021 Assessment & Plan (1) Worsening renal function: likely multifactorial > diuretics, nsaids, labile blood pressure. chemistries ok. urine sediment bland; baseline creatinine unknown. scanty outpatient care - not clear who was refilling his meds OP. -lowered ASA to 81 mg daily >>>pls get outside records > [facility] > last 3 bmp >>>needs renal u/s >> primary service to order -stopped NS > would resume if SBP drops <130 and so ordered >>>PVR pls if no voiding before 2100 -daily bmp -cont to hold lisinopril, metformin (2) Leg swelling: may be d/t amlodipine; not clear how long he's been on 10 mg dose and clearly other issues at play -would not give further lasix just yet -would not limit po fluid or dietary sodium yet History of Present Illness Reason for Consultation: JONATHON Requesting Physician: Dr Torres Attending Physician: Bill Torres MD History of Present Illness 76-year-old male whom I am asked to evaluate for acute kidney injury was admitted last evening for definitive management of bilateral lower extremity swelling, weakness, pain with concern for cellulitis. No outpatient baseline creatinine studies are available. His creatinine was 1.5 on presentation and increased to 2.2 this morning. Past medical history includes COPD, longstanding CKD (not currently following with nephro as outpatient has remotely), prostatic hypertrophy, hypertension, peripheral vascular disease, reformed tobacco abuse; also endorses what sounds like heart failure with preserved ejection fraction and states he was told in the past to take full dose aspirin daily for heart care. no other nsaids. He gets outpatient labs generally at [facility]. He used to follow with cardiology and nephrology remotely along with 5 other physicians. He tells me that he had too many doctors and simply stopped seeing them a few years back. His daughter is at bedside as I evaluate the patient this afternoon. They tell me his leg swelling has been an issue for several years but that it worsened acutely in the past few weeks. The patient is on max dose amlodipine and has as needed Lasix which he uses only occasionally. He lives at home with his son and gets around with a walker normally but has been unable to walk for the past few days prior to admission due to edema. Noted in the ER to have significant leg swelling, redness, pain: in ED received ceftriaxone, ketorolac, Lasix 60 mg IV x1. After receiving the Lasix dose, his blood pressure dropped abruptly midday today to 80 systolic with symptoms. he is currently receiving NS at 70 mL hourly. He also had significant emesis since presentation and tells me he filled 2-3 emesis bags before that settled down. Apparently his diet was advanced to solid food only this evening. no N curre ntly and ++ hunger/appetite. Today he was changed to doxycycline twice daily. He denies voiding or current breathing concerns. ongoing edema. Allergies Allergy/AdvReac Type Severity Reaction Status Date / Time UNKNOWN ANTIBIOTIC AdvReac Severe GI SYMPTOMS Uncoded 08/11/21 20:52 Home Medications Medication Instructions Recorded Confirmed Type amlodipine 10 mg tablet 10 mg PO DAILY 08/11/21 08/11/21 History brimonidine 0.2 % eye drops 1 drp OPB BID 08/11/21 08/11/21 History dorzolamide 22.3 mg-timolol 6.8 1 drp OPB BID 08/11/21 08/11/21 History mg/mL eye drops fluticasone fur. 100 mcg-umeclid 1 ea INHALATION DAILY 08/11/21 08/11/21 History 62.5 mcg-vilant 25 mcg inhalat.powder (Trelegy Ellipta) furosemide 20 mg tablet 20 mg PO DAILY PRN 08/11/21 08/11/21 History lisinopril 20 mg tablet 20 mg PO DAILY 08/11/21 08/11/21 History metoprolol tartrate 25 mg tablet 25 mg PO BID 08/11/21 08/11/21 History tamsulosin 0.4 mg capsule 0.4 mg PO DAILY 08/11/21 08/11/21 History Patient History Medical History Carotid artery hypersensitivity Chronic kidney disease COPD (chronic obstructive pulmonary disease) Hypertension Peripheral vascular disease Prostatic hypertrophy Trigeminal neuralgia pain Family History Other Heart disease Social History Smoking Status: Former smoker Hx Alcohol Use: No Hx Substance Use: No Preferred Language: Greenlandic Communication Ability: Effective Stores Despatch Hand Required: No Beliefs That Will Affect Care: None Current Living Situation: Family Current Living Situation Comment: Lives with son Other Information That Helps Us Care for You: No Feels Safe at Home: Yes Safety Concerns: Feels Safe At This Time Assistive Devices: None Review of Systems Review of Systems: All systems reviewed & are unremarkable except as noted in HPI & below Physical Exam Constitutional: well developed, well nourished, + obese and cooperative; no acute distress Sitting up in chair on room air Eyes: EOM intact bilaterally ENMT: Ears: no external ear abnormality Nose: no external nose abnormality Mouth: + dry oral mucous membranes Neck: no nuchal rigidity Respiratory: normal respiratory effort Auscultation: + diminished lung sounds Cardiovascular: Rate/Rhythm: regular rate and regular rhythm Extremities: + edema (3+ pedal edema and 1+ indurated pretibial edema; little edema prox to knee) Gastrointestinal (Abdomen): Inspection/Auscultation: normal bowel sounds; no abdominal edema Percussion/Palpation: abdomen soft; abdomen nontender and no ascites Musculoskeletal: Extremities: strength 5/5 throughout Skin: some redness distal BLE; indurated venous stasis changes; SKs/brown plaques w/ scale BL legs Neurologic: gonzalez, fluent speech, BL upper extremities w/ resting tremor Psychiatric: Orientation: oriented x 3 Speech: normal rate/rhythm/volume of speech Genitourinary: no ponce Results & Data ([facility]) Vital Signs (Past 12 Hours) Vital Signs Temp Pulse Pulse Pulse Resp BP BP 08/12/21 16:10 64 08/12/21 14:59 36.6 C 73 18 152/81 H 08/12/21 12:56 58 L 102/64 08/12/21 11:30 36.2 C L 60 18 80/44 L 08/12/21 11:20 92/43 L 08/12/21 08:00 36.5 C 64 73 20 103/63 Pulse Ox 08/12/21 16:10 08/12/21 14:59 92 08/12/21 12:56 08/12/21 11:30 95 08/12/21 11:20 08/12/21 08:00 92 Laboratory Results 08/12/21 07:00 08/12/21 07:00 Admission urinalysis: Clear yellow urine specific gravity 1018 1+ protein; all other indices negative Diagnostic Findings Admission echocardiogram No significant valvular pathology. Left ventricular size and LV function systolically. Normal right ventricular systolic function. Elevated left atrial pressures and moderate left atrial dilatation. Bilateral lower extremity arterial Dopplers IMPRESSION: Findings of peripheral vascular disease as above with no sonographic evidence of high-grade stenosis or focal vessel occlusion throughout the arteries of the right or left lower extremity.
[2021-08-12] MEDS: AMMONIUM LACTATE 12% LOTION 225 GM BTL EXT SCH (20:00)
[2021-08-13] MEDS: HEPARIN SOD 5,000 UNIT/0.5 ML VIAL SQ SCH ×4 (00:56→23:02)
[2021-08-13] MEDS: ACETAMINOPHEN 325 MG TAB PO PRN ×3 (01:27→15:41)
--- NOTE | 2021-08-13 05:55 | Electrocardiogram Report ---
Test Reason : Blood Pressure : / mmHG Vent. Rate : 077 BPM Atrial Rate : 078 BPM P-R Int : 138 ms QRS Dur : 078 ms QT Int : 378 ms P-R-T Axes : -37 039 059 degrees QTc Int : 427 ms Poor data quality, interpretation may be adversely affected Normal sinus rhythm No previous ECGs available Confirmed by Malachi Lloyd ([id number]) on 08/13/2021 5:55:00 AM Referred By: REFERRED SELF Confirmed By:Malachi Lloyd
--- NOTE | 2021-08-13 07:03 | Ultrasound Report ---
ULTRASOUND KIDNEYS AND BLADDER CLINICAL HISTORY: Acute renal insufficiency. COMPARISON STUDY: No priors. TECHNIQUE: Real-time, grayscale, and color flow sonography of the kidneys and bladder is performed. I mages are reviewed in the transverse and longitudinal planes. The examination is degraded by lack of patient cooperation. FINDINGS: Kidneys: The kidneys are atrophic. Echotexture is normal. The right kidney measures 9.1 cm in length and the left kidney measures 9.2 cm in length. There is no hydronephrosis. No shadowing renal calculi are identified. Bilateral simple renal cysts measure up to 3.5 cm. A 3.1 cm complex cystic lesion is seen in the right upper pole. There is no sonographic evidence of contour deforming renal mass lesion. No perinephric fluid is iden tified. Bladder: The bladder is decompressed and not well assessed. Ureteral jets were not seen. IMPRESSION: 1. The kidneys are atrophic and without hydronephrosis. 2. The bladder was decompressed and could not be assessed. 3. A 3.1 cm lesion in the right upper pole likely represents a complex cyst. Correlation with a contr ast-enhanced renal protocol CT or MRI is recommended for further assessment. ACT 112: Positive. There are findings on this exam that require communication between the performing entity and the patient following Patient Test Result Information Act ([place] Act 112) guidelines. Electronically signed by: Merrill Phillip M.D. 08/13/2021 7:01 AM
[2021-08-13] MEDS: amLODIPine BESYLATE 5 MG TAB PO SCH (07:41)
[2021-08-13] MEDS: AMMONIUM LACTATE 12% LOTION 225 GM BTL EXT SCH ×2 (07:43→20:46)
[2021-08-13] MEDS: ASPIRIN 81 MG ECTAB PO SCH (07:44)
[2021-08-13] MEDS: BRIMONIDINE TARTRATE 0.2% 5ML OPB SCH ×2 (07:45→20:46)
[2021-08-13] MEDS: DOXYCYCLINE HYCLATE 100 MG CAP PO SCH ×2 (07:45→20:46)
[2021-08-13] MEDS: DORZOLAMIDE/TIMOLOL 22.3/6.8MG/ML 10 ML BTL OPB SCH ×2 (07:45→20:46)
[2021-08-13] MEDS: METOPROLOL TARTRATE 25 MG TAB PO SCH ×2 (07:47→20:47)
[2021-08-13] MEDS: FLUTICASONE FUROATE 100MCG 14 PUFFS/INHALER INH SCH (07:47)
[2021-08-13] MEDS: TAMSULOSIN HCL 0.4 MG CAP PO SCH (07:48)
[2021-08-13 08:03] LABS: Hematocrit (blood only) 38.4 % (42-52); Hemoglobin 13.1 g/dL (14.0-18.0); Mean Corpuscular Hemoglobin 30.8 pg (25-34); Mean Corpuscular Hgb Conc 34.1 g/dL (32-36); Mean Corpuscular Volume 90.4 fL (80-100); Mean Platelet Volume 9.5 fL (7.4-10.4); Platelet Count 201 K/uL (130-400); RDW Coefficient of Variation 14.1 % (11.5-14.5); RDW Standard Deviation 46.1 fL (36.4-46.3); Red Blood Count 4.25 M/uL (4.7-6.1); White Blood Count 5.45 K/uL (4.8-10.8)
[2021-08-13] MEDS: UMECLIDINIUM/VILANTEROL 62.5/25MCG 7 PUFFS/INHALER INH SCH (08:03)
[2021-08-13 08:30] LABS: BUN Creatinine Ratio 17.9 (10-20); Creatinine Clr Calc Pharmacy 29.2 ml/min; Est GFR (African American) 30.6 ml/min; Est GFR (Non-African American) 26.4 ml/min
--- NOTE | 2021-08-13 10:54 | Nephrology Progress Note ---
Date of Service August 13, 2021 Assessment & Plan (1) Worsening renal function: Plan: likely multifactorial > diuretics, nsaids, labile blood pressure> with presenting creatinine 1.5 on presentation and up to 2.2 next day (08/12), jessenia'd. had transient symptomatic hypotension w/ 60 mg IV lasix dose. chemistries ok. urine sediment bland; baseline creatinine unknown. scanty outpatient care - not clear who was refilling his meds OP. no obstruction on u/s -cont lowered ASA to 81 mg daily >>>pls get outside records > [facility] > last 3 bmp >>>PVR pls if no voiding q shift -daily bmp -cont to hold lisinopril, metformin (2) Leg swelling: Plan: may be d/t amlodipine; not clear how long he's been on 10 mg dose and clearly other issues at play; amlodipine will take several days to clear from his system -will give lasix 20 mg IV x 1 now -ordered <2 gm daily Na diet and 1.8 L FR (3) Renal cyst: Plan: will need f/u imaging as OP Admission and Anticipated Discharge Date Admission Date: August 12, 2021 Subjective no interval events. feels ok but still w/ marked/ unchanged LE edema. has terr ific leg pain if in recliner paradoxically; breathing at baseline; denies challenges passing urine Review of Systems Review of Systems: All systems reviewed & are unremarkable except as noted in Subjective Physical Exam Constitutional: well developed, well nourished, + obese and cooperative; no acute distress Eyes: EOM intact bilaterally ENMT: Ears: no external ear abnormality Nose: no external nose abnormality Mouth: + dry oral mucous membranes Neck: no nuchal rigidity Respiratory: normal respiratory effort Auscultation: + diminished lung sounds Cardiovascular: Rate/Rhythm: regular rate and regular rhythm Extremities: + edema (3+ pedal edema and 2+ indurated pretibial edema; little edema prox to knee) Gastrointestinal (Abdomen): Inspection/Auscultation: normal bowel sounds; no abdominal edema Percussion/Palpation: abdomen soft; abdomen nontender and no ascites Musculoskeletal: Extremities: strength 5/5 throughout Skin: ramírez crusting on edematous areas of legs Neurologic: BLUE resting tremor Psychiatric: Orientation: oriented x 3 Speech: normal rate/rhythm/volume of speech Results & Data ([facility]) Vital Signs (Past 12 Hours) Vital Signs Temp Pulse Resp BP BP Pulse Ox 08/13/21 10:29 36.5 C 60 20 125/74 98 08/13/21 07:00 36.9 C 71 20 145/75 H 93 08/13/21 02:56 36.5 C 73 18 118/70 95 Laboratory Results 08/13/21 07:46 08/13/21 07:46 Diagnostic Findings renal u/s 1. The kidneys are atrophic and without hydronephrosis. 2. The bladder was decompressed and could not be assessed. 3. A 3.1 cm lesion in the right upper pole likely represents a complex cyst. Correlation with a contrast-enhanced renal protocol CT or MRI is recommended for further assessment.
[2021-08-13] MEDS: HYDROmorphone INJ 0.5 MG/0.5 ML SYR IV PRN ×2 (11:29→17:34)
--- NOTE | 2021-08-13 12:42 | Hospitalist Progress Note ---
Date of Service August 13, 2021 Assessment & Plan (1) Leg swelling: Plan: BILATERAL LOWER EXTREMITY EDEMA ACUTE ON CHRONIC DIASTOLIC CHF EXACERBATION CELLULITIS AMLODIPINE RELATED? Arterial doppler showed findings of peripheral vascular disease as above with no sonographic evidence of high-grade stenosis or focal vessel occlusion throughout the arteries of the right or left lower extremity. Venous doppler showed no sonographic evidence of deep venous thrombosis identified in the right or left lower extremity. Echo showed no wall motion abnormality with EF 55-60%; Gr 2 Diastolic dysfunction Received Lasix 60mg IV on admission crea elevated to 2.2. hold Lasix nephro consulted Blood cultures: Negative so far on Doxycycline BID Podiatry on board Toenail care was done by podiatry - Follow up in 3 months ACUTE KIDNEY INJURY Creatinine increased from 1.4 to 2.2 to 2.3 Possible related to diuretic ( lasix 60mg ) in the setting of hypotension (BP was 80/44) Will hold lasix due to elevate creatinine renal US: 1. The kidneys are atrophic and without hydronephrosis. 2. The bladder was decompressed and could not be assessed. 3. A 3.1 cm lesion in the right upper pole likely represents a complex cyst. Cor relation with a contrast-enhanced renal protocol CT or MRI is recommended for further assessment. Nephrology consulted COPD Continue outpatient inhaler Stable HYPERTENSION BP in the low side early , improved Continue Amlodipine 2.5 mg HYPERGLYCEMIA Hba1c 6.1 on 08/12/21 BSG 99- 108 RIGHT ARM PAIN, WEAKNESS check shoulder and humerus Xray RIGHT HAND TREMORS chronic outpatient ff up DVT prophylaxis. Heparin subcu Code status Full code Disposition PT/OT Eval will likely need Inpatient rehab Admission and Anticipated Discharge Date Admission Date: August 12, 2021 Subjective ff up leg cellulitis, acute kidney injury, etc seen resting in bedside chair, comfortable still has discomfort of the lower legs and feet no fever/chills no chest pain, dyspnea, palpitations, dizziness reports right upper arm pain and weakness after trying to move a recliner 2 yrs ago also has right hand tremors- chronic no other focal weakness or numbness Review of Systems Review of Systems: all noted and negative except for above Physical Exam Physical Exam: General- oriented x 3, not in distress, speaks in sentences with no effort or accessory muscle use Head- atraumatic Eyes- PERRL, EOMI, anicteric ENT- oropharynx clear Neck- supple, no JVD, no adenopathy, no thyromegaly; carotids +2/2, no bruits appreciated Lungs- clear to auscultation bilaterally, no rales/wheezes Heart- normal rate, regular rhythm; no murmur, no gallop, no rub appreciated Abdomen- normal bowel sounds, nondistended, soft, nontender, no masses or hepatosplenomegaly Extremities- grade 1 lower leg edema, (+) erythema of the distal lower leg and feet no warmth/tenderness Neuro- alert, oriented x 3; CN 2-12 grossly intact; motor 5/5 bilaterally;sensation 100% on all extremities; no other gross focal neurologic deficits (+) mild shaking of the right hand Skin- warm & dry Results & Data Results & Data ([facility]) Vital Signs (Past 12 Hours) Vital Signs Temp Pulse Resp BP BP Pulse Ox 08/13/21 10:29 36.5 C 60 20 125/74 98 08/13/21 07:00 36.9 C 71 20 145/75 H 93 08/13/21 02:56 36.5 C 73 18 118/70 95 all noted and reviewed including below
--- NOTE | 2021-08-13 13:45 | XRay Report ---
XR shoulder RT min 2V routine, XR humerus RT 2V HISTORY: 76 years-old Male r/o fracture acute pain of the right shoulder and upper arm status post t rauma COMPARISON: Right humerus radiographs 08/11/2021 TECHNIQUE: 3 views of the right shoulder with 2 views the right humerus FINDINGS: SHOULDER: Mild glenohumeral and AC joint osteoarthritis. No acute fracture, dislocation or opaque foreign body. ELBOW: No acute fracture, dislocation or opaque foreign body. Mild osteoarthritis of the elbow. IMPRESSION: No acute fracture. ACT 112: Negative or not required by law. The above report was generated using voice recognition software. It may contain grammatical, syntax o r spelling errors. Electronically signed by: Jese Hernandez M.D. 08/13/2021 1:43 PM
[2021-08-13] MEDS ORDERED: FUROSEMIDE INJ 20 MG/2 ML VIAL IV ONE (17:02)
[2021-08-14] MEDS: HEPARIN SOD 5,000 UNIT/0.5 ML VIAL SQ SCH ×2 (08:39→17:19)
[2021-08-14] MEDS: DOXYCYCLINE HYCLATE 100 MG CAP PO SCH ×2 (08:39→20:11)
[2021-08-14] MEDS: METOPROLOL TARTRATE 25 MG TAB PO SCH ×2 (08:39→20:11)
[2021-08-14 08:40] LABS: BUN Creatinine Ratio 21.5 (10-20); Calcium 9.3 mg/dl (8.5-10.1); Creatinine Clr Calc Pharmacy 34.1 ml/min; Est GFR (Non-African American) 31.9 ml/min; Potassium 4.1 mmol/L (3.5-5.1)
[2021-08-14] MEDS: TAMSULOSIN HCL 0.4 MG CAP PO SCH (08:40)
[2021-08-14] MEDS: ASPIRIN 81 MG ECTAB PO SCH (08:40)
[2021-08-14] MEDS: amLODIPine BESYLATE 5 MG TAB PO SCH (08:40)
[2021-08-14] MEDS: AMMONIUM LACTATE 12% LOTION 225 GM BTL EXT SCH ×2 (08:40→20:09)
[2021-08-14] MEDS: UMECLIDINIUM/VILANTEROL 62.5/25MCG 7 PUFFS/INHALER INH SCH (08:41)
[2021-08-14] MEDS: DORZOLAMIDE/TIMOLOL 22.3/6.8MG/ML 10 ML BTL OPB SCH ×2 (08:41→20:09)
[2021-08-14] MEDS: FLUTICASONE FUROATE 100MCG 14 PUFFS/INHALER INH SCH (08:41)
[2021-08-14] MEDS: BRIMONIDINE TARTRATE 0.2% 5ML OPB SCH ×2 (08:42→20:12)
[2021-08-14] MEDS: ACETAMINOPHEN 325 MG TAB PO PRN (08:46)
[2021-08-14] MEDS: traMADol HCL 50 MG TABLET PO PRN ×3 (11:28→21:45)
--- NOTE | 2021-08-14 13:08 | Hospitalist Progress Note ---
Date of Service August 14, 2021 Assessment & Plan (1) Leg swelling: Plan: BILATERAL LOWER EXTREMITY EDEMA ACUTE ON CHRONIC DIASTOLIC CHF EXACERBATION CELLULITIS Arterial doppler showed findings of peripheral vascular disease as above with no sonographic evidence of high-grade stenosis or focal vessel occlusion throughout the arteries of the right or left lower extremity. Venous doppler showed no sonographic evidence of deep venous thrombosis identified in the right or left lower extremity. Echo showed no wall motion abnormality with EF 55-60%; Gr 2 Diastolic dysfunction Received Lasix 60mg IV on admission crea elevated to 2.2. nephro consulted given Lasix 20mg IV last evening negative 800cc so far crea improved to 2.0 continue to monitor closely Blood cultures: Negative so far on Doxycycline BID leg edema somewhat increased today but erythema improving Podiatry on board Toenail care was done by podiatry - Follow up in 3 months ACUTE KIDNEY INJURY Creatinine increased from 1.4 to 2.2 to 2.3 Possible related to diuretic ( lasix 60mg ) in the setting of hypotension (BP was 80/44) renal US: 1. The kidneys are atrophic and without hydronephrosis. 2. The bladder was decompressed and could not be assessed. 3. A 3.1 cm lesion in the right upper pole likely represents a complex cyst. Correlation with a contrast-enhanced renal protocol CT or MRI is recommended for further assessment. Nephrology consulted crea improved to 2.0 continue to monitor closelyt COPD Continue outpatient inhaler Stable HYPERTENSION Continue reduced dose of Amlodipine 2.5 mg HYPERGLYCEMIA Hba1c 6.1 on 08/12/21 BSG stable RIGHT ARM PAIN, WEAKNESS shoulder and humerus Xray: no fracture patient declining MRI at this time outpatient work up RIGHT HAND TREMORS also has shuffling gait as per family as per Neuro, will schedule close outpatient ff up after resolution of leg edema and cellulitis for better evaluation outpatient ff up DVT prophylaxis. Heparin subcu Code status Full code Disposition PT/OT Rosio will likely need Inpatient rehab Admission and Anticipated Discharge Date Admission Date: August 12, 2021 Subjective ff up for leg edema, etc seen resting in bedside chair, comfortable states he feels ok today, leg discomfort somewhat improving no chest pain, dyspnea, palpitations, dizziness no fever/chills voiding with no problems no other symptoms Review of Systems Review of Systems: all noted and negative except for above Physical Exam Physical Exam: General- oriented x 3, not in distress, speaks in sentences with no effort or accessory muscle use Eyes- anicteric Neck- no JVD Lungs- clear BS BL Heart- normal rate, regular rhythm; no murmurs Abdomen- normal bowel sounds, nondistended, soft, nontender Extremities- (+) grade 1 lower leg and pedal edema erythema improving no warmth mild tenderness Neuro- alert, oriented x 3; no new gross focal neurologic deficits Skin- warm & dry Results & Data Results & Data ([facility]) Vital Signs (Past 12 Hours) Vital Signs Temp Pulse Pulse Resp BP BP Pulse Ox 08/14/21 11:22 36.8 C 64 18 125/66 97 08/14/21 07:00 81 08/14/21 02:46 36.5 C 74 18 146/74 H 90 all noted and reviewed including below
[2021-08-14] MEDS ORDERED: FUROSEMIDE INJ 20 MG/2 ML VIAL IV ONE (13:15)
[2021-08-14] MEDS ORDERED: MICONAZOLE NITRATE POWDER 43 GM EXT PRN (14:15)
[2021-08-14] MEDS ORDERED: POLYETHYLENE (MIRALAX) 17 GM PACK PO PRN (15:59)
[2021-08-14] MEDS: DOCUSATE SODIUM/SENNA 50/8.6MG TAB PO SCH (17:19)
--- NOTE | 2021-08-14 19:21 | Nephrology Progress Note ---
Date of Service August 14, 2021 Assessment & Plan (1) Worsening renal function: Plan: likely multifactorial > diuretics, nsaids, labile blood pressure> with presenting creatinine 1.5 on presentation and up to 2.2 next day (08/12), plateau'd and now decreased slightly to 2.0 today. Had transient symptomatic hypotension w/ 60 mg IV lasix dose. chemistries ok. urine sediment bland; baseline creatinine unknown. scanty outpatient care - not clear who was refilling his meds OP. no obstruction on u/s -cont lowered ASA to 81 mg daily >>>pls get outside records > [facility] > last 3 bmp; without this we have no idea of his baseline creatinine >>>PVR pls if no voiding q shift -daily bmp -cont to hold lisinopril, metformin (2) Leg swelling: Plan: may be d/t amlodipine; not clear how long he's been on 10 mg dose and clearly other issues at play; amlodipine will take several days to clear from his system -For past 2 days has had Lasix 20 milligrams IV daily and tolerated well -ordered <2 gm daily Na diet and 1.8 L FR (3) Renal cyst: Plan: will need f/u imaging as OP Admission and Anticipated Discharge Date Admission Date: August 12, 2021 Subjective No interval clinical events. Denies orthopnea. Denies worsening dyspnea. Feels edema is minimally changed at this point. Eating well. No voiding concerns Review of Systems Review of Systems: All systems reviewed & are unremarkable except as noted in Subjective Physical Exam Constitutional: well developed, well nourished, + obese and cooperative; no acute distress Eyes: EOM intact bilaterally ENMT: Ears: no external ear abnormality Nose: no external nose abnormality Mouth: + dry oral mucous membranes Neck: no nuchal rigidity Respiratory: normal respiratory effort Auscultation: + diminished lung sounds Cardiovascular: Rate/Rhythm: regular rate and regular rhythm Extremities: + edema (3+ pedal edema and 2+ indurated pretibial edema; little edema prox to knee) Gastrointestinal (Abdomen): Inspection/Auscultation: normal bowel sounds; no abdominal edema Percussion/Palpation: abdomen soft; abdomen nontender and no ascites Musculoskeletal: Extremities: + abnormal strength Neurologic: Resting tremor bilateral upper extremities, moves all extremities Psychiatric: Orientation: oriented x 3 Speech: normal rate/rhythm/volume of speech Results & Data ([facility]) Vital Signs (Past 12 Hours) Vital Signs Temp Pulse Pulse Resp BP Pulse Ox 08/14/21 18:33 36.9 C 79 18 125/70 95 08/14/21 17:00 63 08/14/21 14:41 37 C 68 18 124/65 97 08/14/21 11:22 36.8 C 64 18 125/66 97 Laboratory Results 08/13/21 07:46 08/14/21 07:54
[2021-08-15] MEDS: HEPARIN SOD 5,000 UNIT/0.5 ML VIAL SQ SCH ×3 (00:36→18:04)
[2021-08-15 06:20] LABS: BUN Creatinine Ratio 25.3 (10-20); Calcium 9.3 mg/dl (8.5-10.1); Creatinine Clr Calc Pharmacy 35.9 ml/min; Est GFR (African American) 39.4 ml/min; Potassium 4.1 mmol/L (3.5-5.1)
[2021-08-15 07:18] LABS: Hematocrit (blood only) 39.5 % (42-52); Hemoglobin 13.5 g/dL (14.0-18.0); Mean Corpuscular Hemoglobin 30.8 pg (25-34); Mean Corpuscular Hgb Conc 34.2 g/dL (32-36); Mean Platelet Volume 9.8 fL (7.4-10.4); Platelet Count 220 K/uL (130-400); RDW Coefficient of Variation 13.8 % (11.5-14.5); RDW Standard Deviation 45.5 fL (36.4-46.3); Red Blood Count 4.39 M/uL (4.7-6.1); White Blood Count 5.56 K/uL (4.8-10.8)
[2021-08-15] MEDS: ACETAMINOPHEN 325 MG TAB PO PRN (07:45)
--- NOTE | 2021-08-15 08:08 | Nephrology Progress Note ---
Date of Service August 15, 2021 Assessment & Plan (1) Leg swelling: Plan: may be d/t amlodipine; not clear how long he's been on 10 mg dose and clearly other issues at play; amlodipine will take several days to clear from his system -For past 2 days has had Lasix 20 milligrams IV daily and tolerated well> increased today to 1 mg IV twice daily 17 -ordered <2 gm daily Na diet and 1.8 L FR (2) Chronic kidney disease: Plan: Unknown baseline renal function. May be in acute kidney injury but cannot say. Renal function running generally in the high ones since presentation. Likely multifactorial > diuretics, nsaids, labile blood pressure> with presenting creatinine 1.5 on presentation and up to 2.2 next day (08/12), plateau'd ever since at about 2. Had transient symptomatic hypotension w/ 60 mg IV lasix dose. chemistries ok. urine sediment bland; baseline creatinine unknown. scanty outpatient care - not clear who was refilling his meds OP. no obstruction on u/s -cont lowered ASA to 81 mg daily >>>pls get outside records > [facility] > last 3 bmp; without this we have no idea of his baseline creatinine >>>PVR pls if no voiding q shift -daily bmp Blood pressure control and diuretics as below -cont to hold lisinopril, metformin (3) Hypertension: Plan: generally w/ acceptable control in elderly pt w/ gait instability though some increases this afternoon > may be amlodipine clearing his system Currently on amlodipine 2.5 mg, Lopressor 25 twice daily > Gently add diuretic as above (4) Renal cyst: Plan: will need f/u imaging as OP Admission and Anticipated Discharge Date Admission Date: August 12, 2021 Subjective no interval clinical events. feels breathing and edema unchanged; no worse or better; denies voiding concerns; tolerating po Review of Systems Review of Systems: All systems reviewed & are unremarkable except as noted in Subjective Physical Exam Constitutional: well developed, well nourished, + obese and cooperative; no acute distress Eyes: EOM intact bilaterally ENMT: Ears: no external ear abnormality Nose: no external nose abnormality Mouth: + dry oral mucous membranes Neck: no nuchal rigidity Respiratory: normal respiratory effort Auscultation: + diminished lung sounds Cardiovascular: Rate/Rhythm: regular rate and regular rhythm Extremities: + edema (3+ pedal edema and 2+ indurated pretibial edema; little edema prox to knee) Gastrointestinal (Abdomen): Inspection/Auscultation: normal bowel sounds; no abdominal edema Percussion/Palpation: abdomen soft; abdomen nontender and no ascites Musculoskeletal: Extremities: + abnormal strength Skin: think skin scattered ecchymoses Neurologic: fluent speech, gonzalez, BLUE resting tremor Psychiatric: Orientation: oriented x 3 Speech: normal rate/rhythm/volume of speech Results & Data ([facility]) Vital Signs (Past 12 Hours) Vital Signs Temp Pulse Pulse Pulse Resp BP BP 08/15/21 07:48 36.7 C 75 17 162/84 H 08/15/21 02:00 36.4 C L 67 18 125/79 08/15/21 00:53 62 08/14/21 22:15 37 C 68 20 132/75 Pulse Ox 08/15/21 07:48 94 08/15/21 02:00 98 08/15/21 00:53 08/14/21 22:15 96 Laboratory Results 08/15/21 05:42 08/15/21 05:42
--- NOTE | 2021-08-15 10:07 | Cardiology Consultation ---
Date of Consultation August 15, 2021 Assessment & Plan (1) Worsening renal function: (2) Peripheral vascular disease: (3) COPD (chronic obstructive pulmonary disease): (4) Chronic kidney disease: (5) Leg swelling: (6) (HFpEF) heart failure with preserved ejection fraction: The patient had one 3.3-second pause while he was sleeping and no other significant arrhythmias. I do not believe any additional testing or treatment is indicated. Perhaps in the future as an outpatient he can be tested for sleep apnea. I do agree with stopping his amlodipine which may be contributing to the lower extremity edema. His echocardiogram shows preserved left ventricular systolic function, so I think this is mostly related to the amlodipine as well as his chronic kidney disease. He will need a diuretic added as an outpatient. History of Present Illness Attending Physician: Estiven Parker MD History of Present Illness This is a 76-year-old male patient who is not a good historian. Most of the history is taken from the medical record. The patient lives up in [place] where he has received most of his medical care through [facility]. He was followed by Jack Wade who recently retired. The patient however, had no significant cardiac history. No previous coronary interventions or history of bypass. No history of arrhythmias or heart failure. He was admitted with worsening lower extremity edema. He is noted to have acute on chronic kidney disease with a worsening creatinine. He denies orthopnea. He has had no progressive shortness of breath. No chest pain. EKG reveals a sinus rhythm and essentially is normal. Echocardiogram shows normal LV function and no significant valvular pathology. 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 He has had no dizziness, lightheadedness, presyncope or syncope. Allergies Allergy/AdvReac Type Severity Reaction Status Date / Time UNKNOWN ANTIBIOTIC AdvReac Severe GI SYMPTOMS Uncoded 08/11/21 20:52 Home Medications Medication Instructions Recorded Confirmed Type amlodipine 10 mg tablet 10 mg PO DAILY 08/11/21 08/11/21 History brimonidine 0.2 % eye drops 1 drp OPB BID 08/11/21 08/11/21 History dorzolamide 22.3 mg-timolol 6.8 1 drp OPB BID 08/11/21 08/11/21 History mg/mL eye drops fluticasone fur. 100 mcg-umeclid 1 ea INHALATION DAILY 08/11/21 08/11/21 History 62.5 mcg-vilant 25 mcg inhalat.powder (Trelegy Ellipta) furosemide 20 mg tablet 20 mg PO DAILY PRN 08/11/21 08/11/21 History lisinopril 20 mg tablet 20 mg PO DAILY 08/11/21 08/11/21 History metoprolol tartrate 25 mg tablet 25 mg PO BID 08/11/21 08/11/21 History tamsulosin 0.4 mg capsule 0.4 mg PO DAILY 08/11/21 08/11/21 History Patient History Medical History Carotid artery hypersensitivity Chronic kidney disease COPD (chronic obstructive pulmonary disease) Hypertension Peripheral vascular disease Prostatic hypertrophy Trigeminal neuralgia pain Family History Other Heart disease Social History Smoking Status: Former smoker Hx Alcohol Use: No Hx Substance Use: No Preferred Language: Mongolian Communication Ability: Effective 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 All other 10 point review of systems are negative. Physical Exam Physical Exam: General: no acute distress and stated age Head: normocephalic, no masses, lesions, tenderness or abnormalities Eyes: conjunctiva are pink and non-injected, sclera clear Neck: supple, no adenopathy, no bruits, normal jugular venous pulse, no hepatojugular reflux Chest: normal shape and normal respiratory effort Lungs: clear to auscultation and percussion Cardiac Exam: - regular rate & rhythm, no murmurs gallops or rubs - normal S1, normal S2 Pulses: 2(+) throughout Abdomen: abdomen soft, non-tender, no abnormal masses and no hepatosplenomegaly Musculoskeletal: no gait disturbance, no joint inflammation, no deforming arthritis Extremities: no edema and no cyanosis Neuro: grossly normal exam Results & Data ([facility]) Vital Signs (Past 12 Hours) Vital Signs Temp Pulse Pulse Pulse Resp BP BP 08/15/21 08:18 60 08/15/21 07:48 36.7 C 75 17 162/84 H 08/15/21 02:00 36.4 C L 67 18 125/79 08/15/21 00:53 62 08/14/21 22:15 37 C 68 20 132/75 Pulse Ox 08/15/21 08:18 08/15/21 07:48 94 08/15/21 02:00 98 08/15/21 00:53 08/14/21 22:15 96 Laboratory Results Laboratory Results - last 24 hr 08/15/21 08/15/21 05:42 05:42 WBC 5.56 RBC 4.39 L Hgb 13.5 L Hct 39.5 L MCV 90.0 MCH 30.8 MCHC 34.2 RDW Std Deviation 45.5 RDW Coeff of Ernie 13.8 Plt Count 220 MPV 9.8 Sodium 137 Potassium 4.1 Chloride 104 Carbon Dioxide 25 Anion Gap 8 BUN 48 H Creatinine 1.90 H Est Cr Clr Drug Dosing 35.9 Est GFR ( Amer) 39.4 Est GFR (Non-Af Amer) 34.0 BUN/Creatinine Ratio 25.3 H Glucose 101 H Calcium 9.3 Medications Administered Current Inpatient Medications Acetaminophen (Acetaminophen 325 Mg Tab) 650 mg PO Q4H PRN PRN Reason: Pain or Fever Stop: 09/10/21 23:07 Last Admin: 08/15/21 07:45 Dose: 650 mg Documented by: Amlodipine Besylate (Amlodipine Besylate 5 Mg Tab) [facility] Stop: 09/11/21 08:59 Last Admin: 08/14/21 08:40 Dose: 2.5 mg Documented by: Aspirin (Aspirin 81 Mg Ectab) 81 mg PO QAM [facility] Stop: 09/12/21 08:59 Last Admin: 08/14/21 08:40 Dose: 81 mg Documented by: Brimonidine Tartrate (Brimonidine Tartrate 0.2% 5ml) 1 drops OPB BID [facility] Stop: 09/11/21 08:59 Last Admin: 08/14/21 20:12 Dose: 1 drops Documented by: Dorzolamide/Timolol (Dorzolamide/Timolol 22.3/6.8mg/Ml 10 Ml Btl) 1 drops OPB BID [facility] Stop: 09/11/21 08:59 Last Admin: 08/14/21 20:09 Dose: 1 drops Documented by: Doxycycline Hyclate (Doxycycline Hyclate 100 Mg Cap) 100 mg PO BID [facility] Stop: 08/19/21 08:59 Last Admin: 08/14/21 20:11 Dose: 100 mg Documented by: Fluticasone Furoate (Fluticasone Furoate 100mcg 14 Puffs/Inhaler) 1 puffs INH DAILY [facility] Stop: 09/11/21 08:59 Last Admin: 08/14/21 08:41 Dose: 1 puffs Documented by: Furosemide (Furosemide Inj 20 Mg/2 Ml Vial) 20 mg IV BID17 [facility] Stop: 09/14/21 08:59 Heparin Sodium (Porcine) (Heparin Sod 5,000 Unit/0.5 Ml Vial) 5,000 units SQ Q8H [facility] Stop: 09/11/21 00:00 Last Admin: 08/15/21 00:36 Dose: Not Given Documented by: Hydromorphone HCl (Hydromorphone Inj 0.5 Mg/0.5 Ml Syr) 0.25 mg IV Q3H PRN PRN Reason: Pain Stop: 08/25/21 23:07 Last Admin: 08/13/21 17:34 Dose: 0.25 mg Documented by: Promethazine HCl 12.5 mg/ (Sodium Chloride) 50.5 mls @ 202 mls/hr IV Q6H PRN PRN Reason: Nausea And Vomiting Stop: 09/10/21 23:07 Sodium Chloride (Nss 1000ml) 1,000 mls @ 70 mls/hr IV .[id number] [facility] Last Infusion: 08/12/21 18:18 Dose: Infused Documented by: Lactic Acid (Ammonium Lactate 12% Lotion 225 Gm Btl) 1 gm EXT BID [facility] Stop: 09/11/21 20:59 Last Admin: 08/14/21 20:09 Dose: 1 gm Documented by: Metoprolol Tartrate (Metoprolol Tartrate 25 Mg Tab) 25 mg PO BID [facility] Stop: 09/11/21 08:59 Last Admin: 08/14/21 20:11 Dose: 25 mg Documented by: Miconazole Nitrate (Miconazole Nitrate Powder 43 Gm) 1 appln EXT PRN PRN PRN Reason: Affected Skin Folds Stop: 09/13/21 14:14 Polyethylene Glycol (Polyethylene (Miralax) 17 Gm Pack) 17 gm PO DAILY PRN PRN Reason: Constipation Stop: 09/13/21 15:58 Senna/Docusate Sodium (Docusate Sodium/Senna 50/8.6mg Tab) 1 tab PO QAM [facility] Stop: 09/13/21 16:14 Last Admin: 08/14/21 17:19 Dose: 1 tab Documented by: Tamsulosin HCl (Tamsulosin Hcl 0.4 Mg Cap) 0.4 mg PO DAILY [facility] Stop: 09/11/21 08:59 Last Admin: 08/14/21 08:40 Dose: 0.4 mg Documented by: Tramadol HCl (Tramadol Hcl 50 Mg Tablet) 25 mg PO Q4H PRN PRN Reason: Pain Stop: 09/10/21 23:07 Last Admin: 08/14/21 20:15 Dose: 25 mg Documented by: Umeclidinium/Vilanterol (Umeclidinium/Vilanterol 62.5/25mcg 7 Puffs/Inhaler) 1 puffs INH DAILY [facility] Stop: 09/11/21 08:59 Last Admin: 08/14/21 08:41 Dose: 1 puffs Documented by:
[2021-08-15] MEDS: amLODIPine BESYLATE 5 MG TAB PO SCH (10:28)
[2021-08-15] MEDS: DOCUSATE SODIUM/SENNA 50/8.6MG TAB PO SCH ×2 (10:28→10:34)
[2021-08-15] MEDS: DOXYCYCLINE HYCLATE 100 MG CAP PO SCH ×2 (10:29→21:13)
[2021-08-15] MEDS: TAMSULOSIN HCL 0.4 MG CAP PO SCH (10:29)
[2021-08-15] MEDS: ASPIRIN 81 MG ECTAB PO SCH (10:29)
[2021-08-15] MEDS: FUROSEMIDE INJ 20 MG/2 ML VIAL IV SCH ×2 (10:30→18:04)
[2021-08-15] MEDS: DORZOLAMIDE/TIMOLOL 22.3/6.8MG/ML 10 ML BTL OPB SCH ×2 (10:30→21:12)
[2021-08-15] MEDS: UMECLIDINIUM/VILANTEROL 62.5/25MCG 7 PUFFS/INHALER INH SCH (10:31)
[2021-08-15] MEDS: FLUTICASONE FUROATE 100MCG 14 PUFFS/INHALER INH SCH ×2 (10:31→10:47)
[2021-08-15] MEDS: AMMONIUM LACTATE 12% LOTION 225 GM BTL EXT SCH ×2 (10:32→21:16)
[2021-08-15] MEDS: BRIMONIDINE TARTRATE 0.2% 5ML OPB SCH ×2 (10:32→21:14)
[2021-08-15] MEDS: traMADol HCL 50 MG TABLET PO PRN ×2 (10:58→21:35)
[2021-08-15] MEDS ORDERED: ONDANSETRON INJ 2 MG/ML 2 ML VIAL IV PRN (11:37)
--- NOTE | 2021-08-15 15:02 | Hospitalist Progress Note ---
Date of Service August 15, 2021 Assessment & Plan (1) Leg swelling: Plan: BILATERAL LOWER EXTREMITY EDEMA ACUTE ON CHRONIC DIASTOLIC CHF EXACERBATION CELLULITIS Arterial doppler showed findings of peripheral vascular disease as above with no sonographic evidence of high-grade stenosis or focal vessel occlusion throughout the arteries of the right or left lower extremity. Venous doppler showed no sonographic evidence of deep venous thrombosis identified in the right or left lower extremity. Echo showed no wall motion abnormality with EF 55-60%; Gr 2 Diastolic dysfunction Received Lasix 60mg IV on admission crea elevated to 2.2. , improving to 1.9 nephro consulted Lasix 20mg IV BID ordered today Blood cultures: Negative so far on Doxycycline BID leg edema about the same, erythema improving monitor closely Podiatry on board Toenail care was done by podiatry - Follow up in 3 months ACUTE KIDNEY INJURY Creatinine increased from 1.4 to 2.2 to 2.3 Possible related to diuretic ( lasix 60mg ) in the setting of hypotension (BP was 80/44) renal US: 1. The kidneys are atrophic and without hydronephrosis. 2. The bladder was decompressed and could not be assessed. 3. A 3.1 cm lesion in the right upper pole likely represents a complex cyst. Correlation with a contrast-enhanced renal protocol CT or MRI is recommended for further assessment. Nephrology consulted crea improved to 1.9 continue to monitor closelyt COPD Continue outpatient inhaler Stable HYPERTENSION d/c Amlodipine HYPERGLYCEMIA Hba1c 6.1 on 08/12/21 BSG stable RIGHT ARM PAIN, WEAKNESS shoulder and humerus Xray: no fracture patient declining MRI at this time outpatient work up RIGHT HAND TREMORS also has shuffling gait as per family as per Neuro, will schedule close outpatient ff up after resolution of leg edema and cellulitis for better evaluation outpatient ff up DVT prophylaxis. Heparin subcu Code status Full code Disposition PT/OT Rosio will likely need Inpatient rehab Admission and Anticipated Discharge Date Admission Date: August 12, 2021 Subjective ff up for leg edema, cellulitis, acute renal failure etc. seen resting in bedside chair, comfortable states he feels ok overall leg feels about the same no chest pain, dyspnea, palpitations, dizziness no other symptoms Review of Systems Review of Systems: all noted and negative except for above Physical Exam Physical Exam: General- oriented x 3, not in distress, speaks in sentences with no effort or accessory muscle use Eyes- anicteric Neck- no JVD Lungs- clear BS bilaterally, no rales/wheezes Heart- normal rate, regular rhythm; no murmurs Abdomen- normal bowel sounds, nondistended, soft, nontender Extremities- grade 1 lower leg edema erythema improving Neuro- alert, oriented x 3; no gross focal neurologic deficits Skin- warm & dry Results & Data Results & Data ([facility]) Vital Signs (Past 12 Hours) Vital Signs Temp Pulse Pulse Resp BP BP Pulse Ox 08/15/21 10:50 36.6 C 74 18 156/76 H 96 08/15/21 08:18 60 08/15/21 07:48 36.7 C 75 17 162/84 H 94 all noted and reviewed including below
--- NOTE | 2021-08-15 22:22 | Electrocardiogram Report ---
Test Reason : Blood Pressure : / mmHG Vent. Rate : 058 BPM Atrial Rate : 058 BPM P-R Int : 140 ms QRS Dur : 092 ms QT Int : 436 ms P-R-T Axes : 000 024 034 degrees QTc Int : 428 ms Poor data quality, interpretation may be adversely affected Sinus bradycardia Otherwise normal ECG When compared with ECG of 11-AUG-2021 17:45, No significant change was found Confirmed by Malachi Lloyd ([id number]) on 08/15/2021 10:22:10 PM Referred By: REFERRED SELF Confirmed By:Malachi Lloyd
[2021-08-16] MEDS: HEPARIN SOD 5,000 UNIT/0.5 ML VIAL SQ SCH ×3 (00:20→16:58)
[2021-08-16 06:48] LABS: BUN Creatinine Ratio 28.2 (10-20); Calcium 9.8 mg/dl (8.5-10.1); Creatinine Clr Calc Pharmacy 37.3 ml/min; Est GFR (African American) 41.8 ml/min; Potassium 3.9 mmol/L (3.5-5.1)
[2021-08-16] MEDS: AMMONIUM LACTATE 12% LOTION 225 GM BTL EXT SCH ×2 (08:10→20:16)
[2021-08-16] MEDS: ASPIRIN 81 MG ECTAB PO SCH (08:11)
[2021-08-16] MEDS: BRIMONIDINE TARTRATE 0.2% 5ML OPB SCH ×2 (08:12→20:18)
[2021-08-16] MEDS: DORZOLAMIDE/TIMOLOL 22.3/6.8MG/ML 10 ML BTL OPB SCH ×2 (08:12→20:19)
[2021-08-16] MEDS: DOCUSATE SODIUM/SENNA 50/8.6MG TAB PO SCH (08:13)
[2021-08-16] MEDS: DOXYCYCLINE HYCLATE 100 MG CAP PO SCH ×2 (08:13→20:17)
[2021-08-16] MEDS: UMECLIDINIUM/VILANTEROL 62.5/25MCG 7 PUFFS/INHALER INH SCH (08:13)
[2021-08-16] MEDS: TAMSULOSIN HCL 0.4 MG CAP PO SCH (08:13)
[2021-08-16] MEDS: FUROSEMIDE INJ 20 MG/2 ML VIAL IV SCH (08:14)
[2021-08-16] MEDS: FLUTICASONE FUROATE 100MCG 14 PUFFS/INHALER INH SCH (08:14)
[2021-08-16] MEDS: traMADol HCL 50 MG TABLET PO PRN ×2 (08:30→15:01)
--- NOTE | 2021-08-16 09:43 | Nephrology Progress Note ---
Date of Service August 16, 2021 Assessment & Plan Admission and Anticipated Discharge Date Admission Date: August 12, 2021 Subjective Assessment & Plan (1) Leg swelling: Plan: I think this is fluid retention and worsened by amlodipine. Given skin changes this is long standing/chronic for very long time. -For past 2 days has had Lasix 20 milligrams IV daily and tolerated well but diuresis not that prominent and basically breakeven. Will raise it to 40 bid. Creat improving daily. Send UA and prot/creat to evaluate for proteinuria (2) Chronic kidney disease: Plan: Unknown baseline renal function.But had creat of 1.4 on admission so not that prominent and use that as baseline. -cont to hold lisinopril, metformin Subjective no interval clinical events. feels breathing and edema unchanged. Denies voiding concerns; tolerating po Review of Systems C Review of Systems: All systems reviewed & are unremarkable except as noted in Subjective Physical Exam Constitutional: well developed, well nourished, + obese and cooperative; no acute distress Eyes: EOM intact bilaterally ENMT: Ears: no external ear abnormality Nose: no external nose abnormality Mouth: + dry oral mucous membranes Neck: no nuchal rigidity Respiratory: normal respiratory effort Auscultation: + diminished lung sounds Cardiovascular: Rate/Rhythm: regular rate and regular rhythm Extremities: + edema (3+ pedal edema and 2+ indurated pretibial edema; little edema prox to knee) Gastrointestinal (Abdomen): Inspection/Auscultation: normal bowel sounds; no abdominal edema Percussion/Palpation: abdomen soft; abdomen nontender and no ascites Musculoskeletal: Extremities: + abnormal strength Skin: think skin scattered ecchymoses Neurologic: fluent speech, gonzalez, BLUE resting tremor Psychiatric: Orientation: oriented x 3 Speech: normal rate/rhythm/volume of speech Results & Data ([facility]) Vital Signs (Past 12 Hours) Vital Signs Temp Pulse Pulse Resp BP Pulse Ox 08/16/21 07:44 66 08/16/21 07:28 36.6 C 86 20 160/79 H 97 08/16/21 03:35 36.6 C 78 18 152/80 H 97 08/15/21 23:26 36.6 C 78 18 155/82 H 93
[2021-08-16] MEDS ORDERED: FUROSEMIDE INJ 20 MG/2 ML VIAL IV ONE (09:45)
[2021-08-16 10:17] LABS: Appearance Urine Clear (Clear); Bilirubin Urine Negative (Negative); Blood Urine Negative (Negative); Color Urine Yellow; Glucose Urine UA Negative (Negative); Ketones Urine Negative (Negative); Leukocyte Esterase Urine Negative (Negative); Nitrite Urine Negative (Negative); Protein Urine Negative (Negative); Urobilinogen Urine Negative (Negative)
[2021-08-16 11:13] LABS: Creatinine Urine Random 52.7 mg/dl; Protein Creatinine Ratio Urine 0.2 (0-0.2); Total Protein Urine Random 11.4 mg/dl (0-11.9)
[2021-08-16] MEDS: FUROSEMIDE 40 MG/4 ML VIAL IV SCH (16:58)
--- NOTE | 2021-08-16 17:12 | Hospitalist Progress Note ---
Date of Service August 16, 2021 Assessment & Plan (1) Leg swelling: Plan: BILATERAL LOWER EXTREMITY EDEMA ACUTE ON CHRONIC DIASTOLIC CHF EXACERBATION CELLULITIS Arterial doppler showedfindings of peripheral vascular disease as above with no sonographic evidence of high-grade stenosis or focal vessel occlusion throughout the arteries of the right or left lower extremity. Venous doppler showed no sonographic evidence of deep venous thrombosis identified in the right or left lower extremity. Echo showed no wall motion abnormality with EF 55-60%; Gr 2 Diastolic dysfunction Received Lasix 60mg IV on admission crea elevated to 2.2. , improving to 1.8 nephro consulted Lasix 40mg IV BID today Blood cultures: Negative so far on Doxycycline BID Podiatry on board Toenail care was done by podiatry - Follow up in 3 months ACUTE KIDNEY INJURY Creatinine increased from 1.4 to 2.2 to 2.3 Possible related to diuretic ( lasix 60mg ) in the setting of hypotension (BP was 80/44) renal US: 1. The kidneys are atrophic and without hydronephrosis. 2. The bladder was decompressed and could not be assessed. 3. A 3.1 cm lesion in the right upper pole likely represents a complex cyst. Correlation with a contrast-enhanced renal protocol CT or MRI is recommended for further assessment. Nephrology consulted crea improved to 1.8 continue to monitor closely COPD Continue outpatient inhaler Stable HYPERTENSION d/c Amlodipine HYPERGLYCEMIA Hba1c 6.1 on 08/12/21 BSG stable RIGHT ARM PAIN, WEAKNESS shoulder and humerus Xray: no fracture patient declining MRI at this time outpatient work up RIGHT HAND TREMORS also has shuffling gait as per family as per Neuro, will schedule close outpatient ff up after resolution of leg edema and cellulitis for better evaluation outpatient ff up DVT prophylaxis. Heparin subcu Code status Full code Disposition PT/OT Rosio will likely need Inpatient rehab Admission and Anticipated Discharge Date Admission Date: August 12, 2021 Subjective ff up for acute diastolic CHF, acute renal failure, etc seen resting in bed, comfortable daughter at bedside visiting states he feels fine overall leg pain well controlled no chest pain, dyspnea, palpitations, dizziness no other symptoms Review of Systems Review of Systems: all noted and negative except for above Physical Exam Physical Exam: General- oriented x 3, not in distress, speaks in sentences with no effort or accessory muscle use Eyes- anicteric Neck- no JVD Lungs- clear breath sounds bilaterally, no rales/wheezes Heart- normal rate, regular rhythm; no murmurs Abdomen- normal bowel sounds, nondistended, soft, nontender Extremities- grade 1 lower leg edema erythema resolving further no warmth/tenderness Neuro- alert, oriented x 3; no gross focal neurologic deficits Skin- warm & dry Results & Data Results & Data ([facility]) Vital Signs (Past 12 Hours) Vital Signs Temp Pulse Pulse Resp BP Pulse Ox 08/16/21 15:45 83 08/16/21 14:52 36.6 C 86 20 153/79 H 95 08/16/21 11:08 36.4 C L 73 20 145/82 H 97 08/16/21 07:44 66 08/16/21 07:28 36.6 C 86 20 160/79 H 97 all noted and reviewed including below
[2021-08-16] MEDS: ACETAMINOPHEN 325 MG TAB PO PRN (20:40)
[2021-08-17] MEDS: HEPARIN SOD 5,000 UNIT/0.5 ML VIAL SQ SCH ×3 (00:10→16:56)
[2021-08-17] MEDS: traMADol HCL 50 MG TABLET PO PRN ×2 (01:46→09:22)
[2021-08-17] MEDS: ACETAMINOPHEN 325 MG TAB PO PRN ×2 (05:56→19:50)
[2021-08-17 07:35] LABS: BUN Creatinine Ratio 29.5 (10-20); Calcium 9.8 mg/dl (8.5-10.1); Creatinine Clr Calc Pharmacy 33.8 ml/min; Est GFR (Non-African American) 31.9 ml/min
[2021-08-17] MEDS: BRIMONIDINE TARTRATE 0.2% 5ML OPB SCH ×2 (09:20→19:49)
[2021-08-17] MEDS: AMMONIUM LACTATE 12% LOTION 225 GM BTL EXT SCH ×2 (09:20→19:49)
[2021-08-17] MEDS: ASPIRIN 81 MG ECTAB PO SCH (09:20)
[2021-08-17] MEDS: DORZOLAMIDE/TIMOLOL 22.3/6.8MG/ML 10 ML BTL OPB SCH ×2 (09:20→19:49)
[2021-08-17] MEDS: DOCUSATE SODIUM/SENNA 50/8.6MG TAB PO SCH (09:21)
[2021-08-17] MEDS: DOXYCYCLINE HYCLATE 100 MG CAP PO SCH ×2 (09:21→19:50)
[2021-08-17] MEDS: FLUTICASONE FUROATE 100MCG 14 PUFFS/INHALER INH SCH (09:21)
[2021-08-17] MEDS: FUROSEMIDE 40 MG/4 ML VIAL IV SCH ×2 (09:21→16:56)
[2021-08-17] MEDS: TAMSULOSIN HCL 0.4 MG CAP PO SCH (09:21)
[2021-08-17] MEDS: UMECLIDINIUM/VILANTEROL 62.5/25MCG 7 PUFFS/INHALER INH SCH (09:22)
--- NOTE | 2021-08-17 12:50 | Nephrology Progress Note ---
Date of Service August 17, 2021 Assessment & Plan Admission and Anticipated Discharge Date Admission Date: August 12, 2021 Subjective Assessment & Plan (1) Leg swelling: Plan: I think this is fluid retention and worsened by amlodipine. Given skin changes this is long standing/chronic for very long time. -Continue lasix 40 bid. Creat Slightly higher than yesterday but overall stable around 2 range. Might have to accept that as his new baseline. Send UA and prot/creat to evaluate for proteinuria (2) Chronic kidney disease: Plan: Unknown baseline renal function.But had creat of 1.4 on admission so not that prominent and use that as baseline. -cont to hold lisinopril, metformin Subjective no new issues. Feels breathing and edema unchanged. Review of Systems Review of Systems: All systems reviewed & are unremarkable except as noted in Subjective Physical Exam Constitutional: well developed, well nourished, + obese and cooperative; no acute distress Eyes: EOM intact bilaterally ENMT: Ears: no external ear abnormality Nose: no external nose abnormality Mouth: + dry oral mucous membranes Neck: no nuchal rigidity Respiratory: normal respiratory effort Auscultation: + diminished lung sounds Cardiovascular: Rate/Rhythm: regular rate and regular rhythm Extremities: + edema (3+ pedal edema and 2+ indurated pretibial edema; little edema prox to knee) Gastrointestinal (Abdomen): Inspection/Auscultation: normal bowel sounds; no abdominal edema Percussion/Palpation: abdomen soft; abdomen nontender and no ascites Musculoskeletal: Extremities: + abnormal strength Skin: think skin scattered ecchymoses Neurologic: fluent speech, gonzalez, BLUE resting tremor Psychiatric: Orientation: oriented x 3 Speech: normal rate/rhythm/volume of speech Results & Data ([facility]) Vital Signs (Past 12 Hours) Vital Signs Temp Pulse Pulse Resp BP Pulse Ox 08/17/21 11:18 36.4 C L 78 19 143/78 H 94 08/17/21 11:15 72 08/17/21 07:26 36.7 C 81 20 139/74 97 08/17/21 04:00 36.6 C 80 18 134/75 96
--- NOTE | 2021-08-17 16:13 | Hospitalist Progress Note ---
Date of Service August 17, 2021 Assessment & Plan (1) Leg swelling: Plan: BILATERAL LOWER EXTREMITY EDEMA ACUTE ON CHRONIC DIASTOLIC CHF EXACERBATION CELLULITIS Arterial doppler showedfindings of peripheral vascular disease as above with no sonographic evidence of high-grade stenosis or focal vessel occlusion throughout the arteries of the right or left lower extremity. Venous doppler showed no sonographic evidence of deep venous thrombosis identified in the right or left lower extremity. Echo showed no wall motion abnormality with EF 55-60%; Gr 2 Diastolic dysfunction Received Lasix 60mg IV on admission crea elevated to 2.2. , Today 2.0 nephro consulted Continue Lasix 40mg IV BID today Blood cultures: Negative so far on Doxycycline BID Podiatry on board Toenail care was done by podiatry - Follow up in 3 months ACUTE KIDNEY INJURY Creatinine increased from 1.4 to 2.2 to 2.3 Possible related to diuretic ( lasix 60mg ) in the setting of hypotension (BP was 80/44) renal US: 1. The kidneys are atrophic and without hydronephrosis. 2. The bladder was decompressed and could not be assessed. 3. A 3.1 cm lesion in the right upper pole likely represents a complex cyst. Correlation with a contrast-enhanced renal protocol CT or MRI is recommended for further assessment. Nephrology consulted crea improved 2.0 continue to monitor closely COPD Continue outpatient inhaler Stable HYPERTENSION d/c Amlodipine Continue to monitor BP HYPERGLYCEMIA Hba1c 6.1 on 08/12/21 BSG stable RIGHT ARM PAIN, WEAKNESS shoulder and humerus Xray: no fracture patient declining MRI at this time outpatient work up RIGHT HAND TREMORS also has shuffling gait as per family as per Neuro, will schedule close outpatient ff up after resolution of leg edema and cellulitis for better evaluation outpatient ff up DVT prophylaxis. Heparin subcu Code status Full code Disposition PT/OT Eval will likely need Inpatient rehab Admission and Anticipated Discharge Date Admission Date: August 12, 2021 Subjective Follow-up for CHF exacerbation, etc. Seen sitting up in bed, comfortable, not in distress Leg discomfort about the same No fevers or chills No shortness of breath, chest pain No other symptoms Review of Systems Review of Systems: all noted and negative except for above Physical Exam Physical Exam: General- oriented x 3, not in distress, speaks in sentences with no effort or accessory muscle use Eyes- anicteric Neck- no JVD Lungs- clear breath sounds bilaterally, no rales/wheezes Heart- normal rate, regular rhythm; no murmurs Abdomen- normal bowel sounds, nondistended, soft, nontender Extremities-clear Lateral lower leg edema: Slightly improved compared to yesterday Erythema improving Neuro- alert, oriented x 3; no gross focal neurologic deficits Skin- warm & dry Results & Data Results & Data ([facility]) Vital Signs (Past 12 Hours) Vital Signs Temp Pulse Pulse Resp BP BP Pulse Ox 08/17/21 15:26 76 08/17/21 15:18 36.4 C L 88 18 153/75 H 95 08/17/21 11:18 36.4 C L 78 19 143/78 H 94 08/17/21 11:15 72 08/17/21 07:26 36.7 C 81 20 139/74 97 all noted and reviewed including below
[2021-08-18] MEDS: HEPARIN SOD 5,000 UNIT/0.5 ML VIAL SQ SCH ×3 (00:35→16:29)
[2021-08-18] MEDS: traMADol HCL 50 MG TABLET PO PRN (04:56)
[2021-08-18 07:13] LABS: Hematocrit (blood only) 40.8 % (42-52); Hemoglobin 14.4 g/dL (14.0-18.0); Mean Corpuscular Hemoglobin 31.2 pg (25-34); Mean Corpuscular Hgb Conc 35.3 g/dL (32-36); Mean Corpuscular Volume 88.5 fL (80-100); Mean Platelet Volume 9.4 fL (7.4-10.4); Platelet Count 210 K/uL (130-400); RDW Standard Deviation 45.4 fL (36.4-46.3); Red Blood Count 4.61 M/uL (4.7-6.1); White Blood Count 6.08 K/uL (4.8-10.8)
[2021-08-18 07:43] LABS: BUN Creatinine Ratio 35.4 (10-20); Calcium 9.9 mg/dl (8.5-10.1); Creatinine Clr Calc Pharmacy 37.2 ml/min; Est GFR (African American) 41.8 ml/min; Potassium 3.6 mmol/L (3.5-5.1)
[2021-08-18] MEDS: DOXYCYCLINE HYCLATE 100 MG CAP PO SCH ×2 (08:35→20:07)
[2021-08-18] MEDS: ASPIRIN 81 MG ECTAB PO SCH (08:35)
[2021-08-18] MEDS: AMMONIUM LACTATE 12% LOTION 225 GM BTL EXT SCH ×2 (08:35→20:07)
[2021-08-18] MEDS: TAMSULOSIN HCL 0.4 MG CAP PO SCH (08:36)
[2021-08-18] MEDS: BRIMONIDINE TARTRATE 0.2% 5ML OPB SCH ×2 (08:36→20:08)
[2021-08-18] MEDS: DORZOLAMIDE/TIMOLOL 22.3/6.8MG/ML 10 ML BTL OPB SCH ×2 (08:37→20:08)
[2021-08-18] MEDS: DOCUSATE SODIUM/SENNA 50/8.6MG TAB PO SCH (08:37)
[2021-08-18] MEDS: FUROSEMIDE 40 MG/4 ML VIAL IV SCH (08:37)
[2021-08-18] MEDS: FLUTICASONE FUROATE 100MCG 14 PUFFS/INHALER INH SCH (08:37)
[2021-08-18] MEDS: UMECLIDINIUM/VILANTEROL 62.5/25MCG 7 PUFFS/INHALER INH SCH (08:38)
--- NOTE | 2021-08-18 11:12 | Nephrology Progress Note ---
Date of Service August 18, 2021 Assessment & Plan Admission and Anticipated Discharge Date Admission Date: August 12, 2021 Subjective Subjective Assessment & Plan (1) Leg swelling: Plan: I think this is fluid retention and worsened by amlodipine. Given skin changes this is long standing/chronic for very long time. Stop iv lasix. Change to oral Lasix 40 bid. Creat Slightly better than yesterday but overall stable around 2 range. Might have to accept that as his new baseline. (2) Chronic kidney disease: Plan: Unknown baseline renal function.But had creat of 1.4 on admission so not that prominent and use that as baseline. -cont to hold lisinopril, metformin till seen by PCP/Nephrology Subjective no new issues. Feels breathing and edema unchanged. Review of Systems Review of Systems: All systems reviewed & are unremarkable except as noted in Subjective Physical Exam Constitutional: well developed, well nourished, + obese and cooperative; no acute distress Eyes: EOM intact bilaterally ENMT: Ears: no external ear abnormality Nose: no external nose abnormality Mouth: + dry oral mucous membranes Neck: no nuchal rigidity Respiratory: normal respiratory effort Auscultation: + diminished lung sounds Cardiovascular: Rate/Rhythm: regular rate and regular rhythm Extremities:2+ pedal edema Gastrointestinal (Abdomen): Inspection/Auscultation: normal bowel sounds; no abdominal edema Percussion/Palpation: abdomen soft; abdomen nontender and no ascites Musculoskeletal: Extremities: edema 2+ Skin: think skin scattered ecchymoses Neurologic: fluent speech, gonzalez, BLUE resting tremor Psychiatric: Orientation: oriented x 3 Speech: normal rate/rhythm/volume of speech Results & Data ([facility]) Vital Signs (Past 12 Hours) Vital Signs Temp Pulse Pulse Pulse Resp BP Pulse Ox 08/18/21 10:56 36.7 C 87 13 127/71 96 08/18/21 07:15 36.5 C 90 13 154/74 H 96 08/18/21 07:13 78 08/18/21 04:00 36.6 C 62 18 137/72 96 08/18/21 01:06 73 08/18/21 00:01 36.7 C 80 18 137/79 99
--- NOTE | 2021-08-18 14:43 | Hospitalist Progress Note ---
Date of Service August 18, 2021 Assessment & Plan (1) Leg swelling: Plan: (1) Leg swelling: Plan: BILATERAL LOWER EXTREMITY EDEMA ACUTE ON CHRONIC DIASTOLIC CHF EXACERBATION CELLULITIS Arterial doppler showedfindings of peripheral vascular disease as above with no sonographic evidence of high-grade stenosis or focal vessel occlusion throughout the arteries of the right or left lower extremity. Venous doppler showed no sonographic evidence of deep venous thrombosis identified in the right or left lower extremity. Echo showed no wall motion abnormality with EF 55-60%; Gr 2 Diastolic dysfunction Received Lasix 60mg IV on admission crea elevated to 2.2. , nephro consulted Lasix uptitrated, up to Lasix 40mg IV BID pedal edema gradually improving transition to Lasix 40mg po BID Blood cultures: Negative so far on Doxycycline BID day 01/07 Podiatry on board Toenail care was done by podiatry - Follow up in 3 months ACUTE KIDNEY INJURY Creatinine increased from 1.4 to 2.2 to 2.3 Possible related to diuretic ( lasix 60mg ) in the setting of hypotension (BP was 80/44), underling foot cellulitis renal US: 1. The kidneys are atrophic and without hydronephrosis. 2. The bladder was decompressed and could not be assessed. 3. A 3.1 cm lesion in the right upper pole likely represents a complex cyst. Correlation with a contrast-enhanced renal protocol CT or MRI is recommended for further assessment. Nephrology consulted improved to 1.8- 2.0: new baseline? continue to monitor closely COPD Continue outpatient inhaler Stable HYPERTENSION d/c Amlodipine due to possible contribution to leg edema Continue to monitor BP HYPERGLYCEMIA Hba1c 6.1 on 08/12/21 BSG stable RIGHT ARM PAIN, WEAKNESS shoulder and humerus Xray: no fracture patient declining MRI at this time outpatient work up RIGHT HAND TREMORS also has shuffling gait as per family as per Neuro, will schedule close outpatient ff up after resolution of leg edema and cellulitis for better evaluation outpatient ff up DVT prophylaxis. Heparin subcu Code status Full code Disposition PT/OT Eval will likely need Inpatient rehab Admission and Anticipated Discharge Date Admission Date: August 12, 2021 Subjective ff up for acute chf, acute renal failure, etc seen resting in chair, comfortable states he feels ok overall minimal discomfort over lower leg and feet no chest pain, dyspnea, palpitations, dizziness no other new symptoms Review of Systems Review of Systems: all noted and negative except for above Physical Exam Physical Exam: General- oriented x 3, not in distress, speaks in sentences with no effort or accessory muscle use Eyes- anicteric Neck- no JVD Lungs- clear breath sounds BL Heart- normal rate, regular rhythm; no murmurs Abdomen- normal bowel sounds, nondistended, soft, nontender Extremities- moderate pedal edema mild pedal edema- improving Neuro- alert, oriented x 3; no gross focal neurologic deficits Skin- warm & dry Results & Data Results & Data ([facility]) Vital Signs (Past 12 Hours) Vital Signs Temp Pulse Pulse Pulse Resp BP Pulse Ox 08/18/21 10:56 36.7 C 87 13 127/71 96 08/18/21 07:15 36.5 C 90 13 154/74 H 96 08/18/21 07:13 78 08/18/21 04:00 36.6 C 62 18 137/72 96 all noted and reviewed including below
[2021-08-18] MEDS: FUROSEMIDE 40 MG TAB PO SCH (16:30)
[2021-08-18] MEDS: ACETAMINOPHEN 325 MG TAB PO PRN (20:06)
[2021-08-19] MEDS: HEPARIN SOD 5,000 UNIT/0.5 ML VIAL SQ SCH ×3 (00:25→17:10)
[2021-08-19] MEDS: traMADol HCL 50 MG TABLET PO PRN ×2 (03:03→12:59)
[2021-08-19 06:45] LABS: BUN Creatinine Ratio 34.4 (10-20); Calcium 9.9 mg/dl (8.5-10.1); Creatinine Clr Calc Pharmacy 34.6 ml/min; Est GFR (African American) 38.2 ml/min; Est GFR (Non-African American) 32.9 ml/min; Potassium 3.6 mmol/L (3.5-5.1)
[2021-08-19] MEDS: ACETAMINOPHEN 325 MG TAB PO PRN (08:19)
[2021-08-19] MEDS: DORZOLAMIDE/TIMOLOL 22.3/6.8MG/ML 10 ML BTL OPB SCH ×2 (08:20→20:05)
[2021-08-19] MEDS: DOCUSATE SODIUM/SENNA 50/8.6MG TAB PO SCH (08:20)
[2021-08-19] MEDS: AMMONIUM LACTATE 12% LOTION 225 GM BTL EXT SCH ×2 (08:20→20:06)
[2021-08-19] MEDS: TAMSULOSIN HCL 0.4 MG CAP PO SCH (08:20)
[2021-08-19] MEDS: ASPIRIN 81 MG ECTAB PO SCH (08:21)
[2021-08-19] MEDS: BRIMONIDINE TARTRATE 0.2% 5ML OPB SCH ×2 (08:21→20:05)
[2021-08-19] MEDS: FLUTICASONE FUROATE 100MCG 14 PUFFS/INHALER INH SCH (08:25)
[2021-08-19] MEDS: UMECLIDINIUM/VILANTEROL 62.5/25MCG 7 PUFFS/INHALER INH SCH (08:25)
[2021-08-19] MEDS: FUROSEMIDE 40 MG TAB PO SCH (10:05)
[2021-08-19] MEDS ORDERED: POTASSIUM CHLORIDE CRTAB 20 MEQ TABCR PO STA (10:12)
[2021-08-19] MEDS ORDERED: FUROSEMIDE INJ 20 MG/2 ML VIAL IV ONE (11:20)
[2021-08-19] MEDS: FUROSEMIDE 40 MG/4 ML VIAL IV SCH (17:10)
--- NOTE | 2021-08-19 18:05 | Hospitalist Progress Note ---
Date of Service August 19, 2021 Assessment & Plan (1) Leg swelling: Plan: (1) Leg swelling: Plan: BILATERAL LOWER EXTREMITY EDEMA ACUTE ON CHRONIC DIASTOLIC CHF EXACERBATION CELLULITIS Arterial doppler showedfindings of peripheral vascular disease as above with no sonographic evidence of high-grade stenosis or focal vessel occlusion throughout the arteries of the right or left lower extremity. Venous doppler showed no sonographic evidence of deep venous thrombosis identified in the right or left lower extremity. Echo showed no wall motion abnormality with EF 55-60%; Gr 2 Diastolic dysfunction Received Lasix 60mg IV on admission crea elevated to 2.2. nephro consulted Lasix uptitrated, Lasix 40mg IV BID Lower extremity and pedal edema slowly to improve Possible underlying lymphedema as well, poor mobility also contributing Patient unable to elevate legs due to significant pain Continue to monitor closely Blood cultures: Negative so far on Doxycycline BID day 9 Podiatry on board Toenail care was done by podiatry - Follow up in 3 months ACUTE KIDNEY INJURY Creatinine increased from 1.4 to 2.2 to 2.3 Possible related to diuretic ( lasix 60mg ) in the setting of hypotension (BP was 80/44), underling foot cellulitis renal US: 1. The kidneys are atrophic and without hydronephrosis. 2. The bladder was decompressed and could not be assessed. 3. A 3.1 cm lesion in the right upper pole likely represents a complex cyst. Correlation with a contrast-enhanced renal protocol CT or MRI is recommended for further assessment. Nephrology consulted improved to 1.8- 2.0: new baseline? continue to monitor closely COPD Continue outpatient inhaler Stable HYPERTENSION d/c Amlodipine due to possible contribution to leg edema Continue to monitor BP HYPERGLYCEMIA Hba1c 6.1 on 08/12/21 BSG stable RIGHT ARM PAIN, WEAKNESS shoulder and humerus Xray: no fracture patient declining MRI at this time outpatient work up RIGHT HAND TREMORS also has shuffling gait as per family as per Neuro, will schedule close outpatient ff up after resolution of leg edema and cellulitis for better evaluation outpatient ff up DVT prophylaxis. Heparin subcu Code status Full code Disposition PT/OT Eval will need Inpatient rehab Admission and Anticipated Discharge Date Admission Date: August 12, 2021 Subjective Follow-up for acute CHF exacerbation, leg cellulitis, etc. Seen sitting up in bedside chair, not in distress Comfortable Does report increased pain over the lower legs, feet No fevers or chills No change in breathing No other symptom Review of Systems Review of Systems: all noted and negative except for above Physical Exam Physical Exam: General- oriented x 3, not in distress, speaks in sentences with no effort or accessory muscle use Eyes- anicteric Neck- no JVD Lungs- clear breath sounds bilaterally, no crackles, no wheezing bilaterally Heart- normal rate, regular rhythm; no murmurs Abdomen- normal bowel sounds, nondistended, soft, nontender Extremities-positive grade 1 lower extremity edema, with erythema of the feet, improving Neuro- alert, oriented x 3; no gross focal neurologic deficits Skin- warm & dry Results & Data Results & Data ([facility]) Vital Signs (Past 12 Hours) Vital Signs Temp Pulse Pulse Resp BP Pulse Ox 08/19/21 17:44 93 H 08/19/21 16:23 36.5 C 77 20 158/79 H 97 08/19/21 12:10 36.7 C 76 18 143/79 H 97 08/19/21 09:25 73 08/19/21 06:39 36.7 C 89 20 167/78 H 96 all noted and reviewed including below
[2021-08-20] MEDS: HEPARIN SOD 5,000 UNIT/0.5 ML VIAL SQ SCH ×3 (00:26→18:14)
[2021-08-20] MEDS: traMADol HCL 50 MG TABLET PO PRN ×2 (01:59→22:40)
[2021-08-20] MEDS: ASPIRIN 81 MG ECTAB PO SCH (08:18)
[2021-08-20] MEDS: DOCUSATE SODIUM/SENNA 50/8.6MG TAB PO SCH (08:18)
[2021-08-20] MEDS: TAMSULOSIN HCL 0.4 MG CAP PO SCH (08:19)
[2021-08-20] MEDS: DORZOLAMIDE/TIMOLOL 22.3/6.8MG/ML 10 ML BTL OPB SCH ×2 (08:19→21:40)
[2021-08-20] MEDS: UMECLIDINIUM/VILANTEROL 62.5/25MCG 7 PUFFS/INHALER INH SCH (08:19)
[2021-08-20] MEDS: AMMONIUM LACTATE 12% LOTION 225 GM BTL EXT SCH ×2 (08:20→21:41)
[2021-08-20] MEDS: FLUTICASONE FUROATE 100MCG 14 PUFFS/INHALER INH SCH (08:20)
[2021-08-20] MEDS: FUROSEMIDE 40 MG/4 ML VIAL IV SCH (08:21)
[2021-08-20] MEDS: BRIMONIDINE TARTRATE 0.2% 5ML OPB SCH ×2 (08:30→21:41)
--- NOTE | 2021-08-20 11:15 | Nephrology Progress Note ---
Date of Service August 20, 2021 Assessment & Plan Admission and Anticipated Discharge Date Admission Date: August 12, 2021 Subjective Assessment & Plan (1) Leg swelling: Plan: Given skin changes this is long standing/chronic for very long time.ECHO--Mildly abnormal. NO proteinuria and No DVT on Duplex. Not clear that is all fluid retention. Stop iv lasix. Change to oral Lasix 40 bid. Was not on any Diuretics pre Admission. Labs pending today. Creat overall stable around 2 range. Might have to accept that as his new baseline. Will need nephrology f/u 1-2 week after discharge (2) Chronic kidney disease: Plan: Unknown baseline renal function.But had creat of 1.4 on admission so not that prominent and use that as baseline. -cont to hold lisinopril, metformin till seen by PCP/Nephrology Subjective Still C/o LE edema and associated pain. Feels breathing and edema unchanged. Weak and sleepy. Keeps head down and eyes closed all the time Review of Systems Review of Systems: All systems reviewed & are unremarkable except as noted in Subjective Physical Exam Constitutional: well developed, well nourished, + obese and cooperative; no acute distress Eyes: EOM intact bilaterally ENMT: Ears: no external ear abnormality Nose: no external nose abnormality Mouth: + dry oral mucous membranes Neck: no nuchal rigidity Respiratory: normal respiratory effort Auscultation: + diminished lung sounds Cardiovascular: Rate/Rhythm: regular rate and regular rhythm Extremities:2+ pedal edema Gastrointestinal (Abdomen): Inspection/Auscultation: normal bowel sounds; no abdominal edema Percussion/Palpation: abdomen soft; abdomen nontender and no ascites Musculoskeletal: Extremities: edema 2+ Skin: think skin scattered ecchymoses Neurologic: fluent speech, gonzalez, BLUE resting tremor Psychiatric: Orientation: oriented x 3 Speech: normal rate/rhythm/volume of speech Results & Data ([facility]) Vital Signs (Past 12 Hours) Vital Signs Temp Pulse Pulse Resp BP BP Pulse Ox 08/20/21 07:52 36.6 C 81 18 169/75 H 172/75 H 97 08/20/21 07:24 69 08/20/21 02:46 36.8 C 83 18 143/74 H 97 08/19/21 23:36 75
[2021-08-20 11:43] LABS: Albumin Level 4.2 gm/dl (3.4-5.0); BUN Creatinine Ratio 35.1 (10-20); Calcium 9.9 mg/dl (8.5-10.1); Creatinine Clr Calc Pharmacy 35.4 ml/min; Est GFR (African American) 39.1 ml/min; Est GFR (Non-African American) 33.8 ml/min; Phosphorus 3.9 mg/dl (2.5-4.9); Potassium 3.8 mmol/L (3.5-5.1)
--- NOTE | 2021-08-20 14:30 | Hospitalist Progress Note ---
Date of Service August 20, 2021 Assessment & Plan (1) Cellulitis: Plan: #. BLE edema #. Acute on chronic HFpEF #. BLE Cellulitis Patient presented with worsening leg swelling and redness along with pain few days ago [employer]. 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 Admitting Doppler BLE: Negative for DVT Admitting arterial scan lower extremity: PVD with no sonographic evidence of high-grade stenosis or focal vaso-occlusion. Admitting blood culture: No growth 08/12/2021 echo: EF 55 to 60%, grade 2 diastolic dysfunction Lower extremity edema has chronic component [given the skin changes] on top of acute changes, possibly underlying lymphedema and worsened with poor mobility. Patient reports unable to elevate legs due to pain. IV Lasix transition to oral twice daily per nephrology. Creatinine stable around 2, likely new baseline. Patient will need nephrology follow-up in 1 to 2 weeks upon discharge BLE erythema has improved, patient is status post doxycycline treatment Podiatry on board Toenail care was done by podiatry - Follow up in 3 months #. ACUTE KIDNEY INJURY Creatinine increased from 1.4 to 2.2 to 2.3 Possible related to diuretic ( lasix 60mg ) in the setting of hypotension (BP was 80/44), underling foot cellulitis Nephrology evaluated, likely the new baseline is around 1.8-2 Patient currently transition to p.o. Lasix, follow-up with nephrology as an outpatient. continue to hold lisinopril till seen by PCP/Nephrology. #. Other chronic medical conditions: COPD, HTN, hyperglycemia [A1c of 6.1 this admission] Continue with/resume home medications as and when appropriate. Resuming his metoprolol owing to high BP and increased HR, continue to hold amlod given edema. #. Right arm pain/weakness Shoulder and humerus x-ray: No fracture, patient declined MRI per prior attending Outpatient follow-up with PCP/orthopedics if needed #. Right hand tremors Patient has shuffling gait as per family Per prior attending, patient will need outpatient neurology follow-up for appropriate evaluation after this acute phase is resolved. #. DVT prophylaxis: Heparin subcu #. CODE STATUS: Full code #. Disposition: PT/OT, patient has got bed at [place], will evaluate him again tomorrow for possible discharge. 08/20: Talked with patient's son Jin over the phone, explained the current status of the patient and need for ongoing treatment of his lower extremity edema which is both acute and chronic component. He will need to be compliant with Lasix as an outpatient and will need follow-up with nephrology. Also he will need follow-up with neurology as an outpatient for his history of shuffling gait. Answered all his questions, he voiced understanding and was agreeable to the plan of care. Admission and Anticipated Discharge Date Admission Date: August 12, 2021 Subjective Patient seen and examined at bedside as a follow-up of BLE edema/acute exacerbation of chronic diastolic CHF and lower extremity cellulitis. Patient sitting up in chair, on room air, reports some improvement with leg swel ling, still concerned with swelling legs, per RN patient not able to/refusing leg elevation; is eating good; needs help with moving around. Patient denies any fever/headache/dizziness/chills/chest pain/belly pain/other review of symptoms. Physical Exam Physical Exam: GENERAL: Alert and oriented x3. NAD, on RA. Ill looking. HEENT: No pallor, no icterus. Pupils equal, round and reactive to light. Oral mucosa moist. NECK: No JVD, no neck masses. HEART: S1 and S2 heard. Regular rate and rhythm. No murmur, no gallop. RESPIRATORY SYSTEM: Normal AP diameter. No accessory muscle use. No wheezing, b/b crackles. ABDOMEN: Soft, bowel sounds present, nontender, no distention. CENTRAL NERVOUS SYSTEM: No facial droop. Speech is clear. Obeys simple commands. Moves extremities. EXTREMITIES: BLE 1+ edema, erythema noted in earlier notes seems improved. Results & Data Results & Data ([facility]) Vital Signs (Past 12 Hours) Vital Signs Temp Pulse Pulse Resp BP BP Pulse Ox 08/20/21 12:27 36.3 C L 93 H 22 172/68 H 93 08/20/21 07:52 36.6 C 81 18 169/75 H 172/75 H 97 08/20/21 07:24 69 08/20/21 02:46 36.8 C 83 18 143/74 H 97 (1) Cellulitis Laterality: unspecified laterality Site of cellulitis: extremity Site of cellulitis of extremity: lower extremity Qualified Code(s): L03.119 - Cellulitis of unspecified part of limb
[2021-08-20] MEDS ORDERED: METOPROLOL TARTRATE 25 MG TAB PO ONE (15:01)
[2021-08-20] MEDS: FUROSEMIDE 40 MG TAB PO SCH (18:14)
[2021-08-20] MEDS: METOPROLOL TARTRATE 25 MG TAB PO SCH (23:43)
[2021-08-21] MEDS: HEPARIN SOD 5,000 UNIT/0.5 ML VIAL SQ SCH ×4 (01:02→23:02)
[2021-08-21 07:51] LABS: Hematocrit (blood only) 38.8 % (42-52); Hemoglobin 13.2 g/dL (14.0-18.0); Mean Corpuscular Hemoglobin 30.6 pg (25-34); Mean Platelet Volume 9.4 fL (7.4-10.4); Platelet Count 216 K/uL (130-400); RDW Standard Deviation 46.2 fL (36.4-46.3); Red Blood Count 4.31 M/uL (4.7-6.1); White Blood Count 6.94 K/uL (4.8-10.8)
[2021-08-21 08:12] LABS: BUN Creatinine Ratio 38.5 (10-20); Calcium 9.7 mg/dl (8.5-10.1); Creatinine Clr Calc Pharmacy 38.2 ml/min; Est GFR (African American) 42.3 ml/min; Est GFR (Non-African American) 36.5 ml/min; Magnesium 2.3 mg/dl (1.7-2.4); Potassium 4.1 mmol/L (3.5-5.1)
[2021-08-21] MEDS: FUROSEMIDE 40 MG TAB PO SCH (08:20)
[2021-08-21] MEDS: METOPROLOL TARTRATE 25 MG TAB PO SCH ×2 (08:20→20:12)
[2021-08-21] MEDS: DORZOLAMIDE/TIMOLOL 22.3/6.8MG/ML 10 ML BTL OPB SCH ×2 (08:21→20:12)
[2021-08-21] MEDS: UMECLIDINIUM/VILANTEROL 62.5/25MCG 7 PUFFS/INHALER INH SCH (08:21)
[2021-08-21] MEDS: FLUTICASONE FUROATE 100MCG 14 PUFFS/INHALER INH SCH (08:21)
[2021-08-21] MEDS: BRIMONIDINE TARTRATE 0.2% 5ML OPB SCH ×2 (08:22→20:12)
[2021-08-21] MEDS: ASPIRIN 81 MG ECTAB PO SCH (08:22)
[2021-08-21] MEDS: TAMSULOSIN HCL 0.4 MG CAP PO SCH (08:23)
[2021-08-21] MEDS: AMMONIUM LACTATE 12% LOTION 225 GM BTL EXT SCH ×2 (08:23→20:13)
[2021-08-21] MEDS: DOCUSATE SODIUM/SENNA 50/8.6MG TAB PO SCH (08:23)
[2021-08-21] MEDS: traMADol HCL 50 MG TABLET PO PRN ×2 (09:51→23:02)
--- NOTE | 2021-08-21 11:21 | Nephrology Progress Note ---
Date of Service August 21, 2021 Assessment & Plan Admission and Anticipated Discharge Date Admission Date: August 12, 2021 Subjective Assessment & Plan (1) Leg swelling: Plan: Given skin changes this is long standing/chronic for very long time.ECHO--Mildly abnormal. No proteinuria and No DVT on Duplex. So no real cause for massive edema. I dont think this is all fluid retention. Maybe big part is just Lymphedema However patient son is claiming this LE edema is all new and very bad. Not ready to take him home . Will raise to Lasix 80 bid. also kcl 2o bid. Was not on any regular Diuretics pre Admission. Creat overall stable around 2 range. Might have to accept that as his new baseline. Will need nephrology f/u 1-2 week after discharge. (2) Chronic kidney disease: Plan: Unknown baseline renal function.But had creat of 1.4 on admission so not that prominent and use that as baseline. -cont to hold lisinopril, metformin till seen by PCP/Nephrology Subjective Still C/o LE edema and associated pain. Feels breathing and edema unchanged. Weak and sleepy. Keeps head down and eyes closed all the time Review of Systems Review of Systems: All systems reviewed & are unremarkable except as noted in Subjective Physical Exam Constitutional: well developed, well nourished, + obese and cooperative; no acute distress Eyes: EOM intact bilaterally ENMT: Ears: no external ear abnormality Nose: no external nose abnormality Mouth: + dry oral mucous membranes Neck: no nuchal rigidity Respiratory: normal respiratory effort Auscultation: + diminished lung sounds Cardiovascular: Rate/Rhythm: regular rate and regular rhythm Extremities:2+ pedal edema Gastrointestinal (Abdomen): Inspection/Auscultation: normal bowel sounds; no abdominal edema Percussion/Palpation: abdomen soft; abdomen nontender and no ascites Musculoskeletal: Extremities: edema 2+ Skin: think skin scattered ecchymoses Neurologic: fluent speech, gonzalez, BLUE resting tremor Psychiatric: Orientation: oriented x 3 Speech: normal rate/rhythm/volume of speech Results & Data ([facility]) Vital Signs (Past 12 Hours) Vital Signs Temp Pulse Pulse Resp BP Pulse Ox 08/21/21 10:42 36.6 C 72 16 154/73 H 96 08/21/21 07:25 36.5 C 75 15 137/71 95 08/21/21 07:11 65 08/21/21 03:54 36.4 C L 73 20 137/77 95
[2021-08-21] MEDS: FUROSEMIDE 80 MG TAB PO SCH (16:31)
--- NOTE | 2021-08-21 16:54 | Hospitalist Progress Note ---
Date of Service August 21, 2021 Assessment & Plan (1) Cellulitis: Plan: #. BLE edema #. Acute on chronic HFpEF #. 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 Admitting Doppler BLE: Negative for DVT Admitting arterial scan lower extremity: PVD with no sonographic evidence of high-grade stenosis or focal vaso-occlusion. Admitting blood culture: No growth 08/12/2021 echo: EF 55 to 60%, grade 2 diastolic dysfunction Lower extremity edema has chronic component [given the skin changes] on top of acute changes, possibly underlying lymphedema and worsened with poor mobility and non compliance with OP lasix. Patient elevating legs today, and reports improving BLE edema Per Nephro, lasix increased to 80 mg bid, with kcl 20 mg bid Creatinine stable around 2, likely new baseline. Patient will need nephrology follow-up in 1 to 2 weeks upon discharge BLE erythema has improved, patient is status post doxycycline treatment Podiatry on board Toenail care was done by podiatry - Follow up in 3 months #. ACUTE KIDNEY INJURY Creatinine increased from 1.4 to 2.2 to 2.3 Possible related to diuretic ( lasix 60mg ) in the setting of hypotension (BP was 80/44), underling foot cellulitis Nephrology evaluated, likely the new baseline is around 1.8-2 Lasix dose being optimized, follow-up with nephrology as an outpatient. continue to hold lisinopril till seen by PCP/Nephrology. #. Other chronic medical conditions: COPD, HTN, hyperglycemia [A1c of 6.1 this admission] Continue with/resume home medications as and when appropriate. Resuming his metoprolol owing to high BP and increased HR, continue to hold amlod given edema. #. Right arm pain/weakness Shoulder and humerus x-ray: No fracture, patient declined MRI per prior attending Outpatient follow-up with PCP/orthopedics if needed #. Right hand tremors Patient has shuffling gait as per family Per prior attending, patient will need outpatient neurology follow-up for appropriate evaluation after this acute phase is resolved. #. DVT prophylaxis: Heparin subcu #. CODE STATUS: Full code #. Disposition: PT/OT, patient has got bed at [facility], will evaluate him again tomorrow for possible discharge. 08/20: Talked with patient's son Jin over the phone, explained the current status of the patient and need for ongoing treatment of his lower extremity edema which is both acute and chronic component. He will need to be compliant with Lasix as an outpatient and will need follow-up with nephrology. Also he will need follow-up with neurology as an outpatient for his history of shuffling gait. Answered all his questions, he voiced understanding and was agreeable to the plan of care. Disposition: stable for DC. Pt wants to stay, will likely agree tomorrow. Admission and Anticipated Discharge Date Admission Date: August 12, 2021 Subjective Patient seen and examined at bedside as a follow-up of BLE edema/acute exacerbation of chronic diastolic CHF and lower extremity cellulitis. Patient sitting up in chair, on room air, reports some improvement with leg swelling, concerned that it might not improve if he leaves the hospital, per CM pt not agreeable to discharge and wants to appeal the DC, upon explaining in detail about his condition and what needs to be done further, he is willing to wait until tomorrow morning and will likely agree to DC tomorrow; is eating good; needs help with moving around. Patient denies any fever/headache/dizziness/chills/chest pain/belly pain/other review of symptoms. Physical Exam Physical Exam: GENERAL: Alert and oriented x3. NAD, on RA. Ill looking. HEENT: No pallor, no icterus. Pupils equal, round and reactive to light. Oral mucosa moist. NECK: No JVD, no neck masses. HEART: S1 and S2 heard. Regular rate and rhythm. No murmur, no gallop. RESPIRATORY SYSTEM: Normal AP diameter. No accessory muscle use. No wheezing, b/b crackles improving ABDOMEN: Soft, bowel sounds present, nontender, no distention. CENTRAL NERVOUS SYSTEM: No facial droop. Speech is clear. Obeys simple com mands. Moves extremities. EXTREMITIES: BLE 1+ edema, erythema noted in earlier notes seems improved. B/l resting hand tremors noted. Results & Data Results & [facility] Vital Signs (Past 12 Hours) Vital Signs Temp Pulse Pulse Resp BP BP Pulse Ox 08/21/21 16:00 36.7 C 72 20 125/67 97 08/21/21 10:42 36.6 C 72 16 154/73 H 96 08/21/21 07:25 36.5 C 75 15 137/71 95 08/21/21 07:11 65 (1) Cellulitis Laterality: unspecified laterality Site of cellulitis: extremity Site of cellulitis of extremity: lower extremity Qualified Code(s): L03.119 - Cellulitis of unspecified part of limb
[2021-08-21] MEDS: POTASSIUM CHLORIDE CRTAB 20 MEQ TABCR PO SCH (20:11)
[2021-08-22 07:05] LABS: BUN Creatinine Ratio 39.6 (10-20); Calcium 9.3 mg/dl (8.5-10.1); Creatinine Clr Calc Pharmacy 41.2 ml/min; Est GFR (Non-African American) 40.6 ml/min; Magnesium 2.3 mg/dl (1.7-2.4); Potassium 4.1 mmol/L (3.5-5.1)
[2021-08-22] MEDS: DORZOLAMIDE/TIMOLOL 22.3/6.8MG/ML 10 ML BTL OPB SCH (08:41)
[2021-08-22] MEDS: ASPIRIN 81 MG ECTAB PO SCH (08:43)
[2021-08-22] MEDS: DOCUSATE SODIUM/SENNA 50/8.6MG TAB PO SCH (08:44)
[2021-08-22] MEDS: FUROSEMIDE 80 MG TAB PO SCH (08:44)
[2021-08-22] MEDS: POTASSIUM CHLORIDE CRTAB 20 MEQ TABCR PO SCH (08:45)
[2021-08-22] MEDS: METOPROLOL TARTRATE 25 MG TAB PO SCH (08:45)
[2021-08-22] MEDS: TAMSULOSIN HCL 0.4 MG CAP PO SCH (08:46)
[2021-08-22] MEDS: BRIMONIDINE TARTRATE 0.2% 5ML OPB SCH (08:51)
[2021-08-22] MEDS: HEPARIN SOD 5,000 UNIT/0.5 ML VIAL SQ SCH (08:53)
[2021-08-22] MEDS: FLUTICASONE FUROATE 100MCG 14 PUFFS/INHALER INH SCH (09:02)
[2021-08-22] MEDS: UMECLIDINIUM/VILANTEROL 62.5/25MCG 7 PUFFS/INHALER INH SCH (09:03)
[2021-08-22] MEDS: traMADol HCL 50 MG TABLET PO PRN (09:12)
[2021-08-22] MEDS: AMMONIUM LACTATE 12% LOTION 225 GM BTL EXT SCH (09:14)
--- NOTE | 2021-08-22 11:24 | Nephrology Progress Note ---
Date of Service August 22, 2021 Assessment & Plan Admission and Anticipated Discharge Date Admission Date: August 12, 2021 Subjective Assessment & Plan (1) Leg swelling: Plan: Given skin changes this is long standing/chronic for very long time.ECHO--Mildly abnormal. No proteinuria and No DVT on Duplex. So no real cause for massive edema. I dont think this is all fluid retention. Maybe big part is just Lymphedema However patient son is claiming this LE edema is all new and very bad. Not ready to take him home . for discharge Lasix 80 bid. also kcl 2o bid. Was not on any regular Diuretics pre Admission. Creat overall stable just under 2 range. Might have to accept that as his new baseline. Will need nephrology f/u 1-2 week after discharge. (2) Chronic kidney disease: Plan: Unknown baseline renal function.But had creat of 1.4 on admission so not that prominent and use that as baseline. -cont to hold lisinopril, metformin till seen by PCP/Nephrology Subjective Still C/o LE edema and associated pain. Feels breathing and edema unchanged. Weak and sleepy. Keeps head down and eyes closed all the time Review of Systems Review of Systems: All systems reviewed & are unremarkable except as noted in Subjective Physical Exam Constitutional: well developed, well nourished, + obese and cooperative; no acute distress Eyes: EOM intact bilaterally ENMT: Ears: no external ear abnormality Nose: no external nose abnormality Mouth: + dry oral mucous membranes Neck: no nuchal rigidity Respiratory: normal respiratory effort Auscultation: + diminished lung sounds Cardiovascular: Rate/Rhythm: regular rate and regular rhythm Extremities:2+ pedal edema Gastrointestinal (Abdomen): Inspection/Auscultation: normal bowel sounds; no abdominal edema Percussion/Palpation: abdomen soft; abdomen nontender and no ascites Musculoskeletal: Extremities: edema 2+ Skin: think skin scattered ecchymoses Neurologic: fluent speech, gonzalez, BLUE resting tremor Psychiatric: Orientation: oriented x 3 Speech: normal rate/rhythm/volume of speech Results & Data ([facility]) Vital Signs (Past 12 Hours) Vital Signs Temp Pulse Pulse Resp BP BP Pulse Ox 08/22/21 10:45 36.9 C 62 14 124/70 93 08/22/21 07:05 36.6 C 66 14 130/66 92 08/22/21 04:03 36.8 C 71 18 124/65 94 08/21/21 23:25 36.6 C 60 18 132/70 95
[2021-08-22] MEDS: ACETAMINOPHEN 325 MG TAB PO PRN (11:41)
--- NOTE | 2021-08-22 11:45 | Discharge Summary ---
Date of Service August 22, 2021 Admission HPI Per Admitting Provider BilateralHistory obtained from patient, family, and records. Medical history significant for hypertension, TIA, COPD, CRI (unknown baseline ), BPH, venous insufficiency, past tobacco abuse. Few days ago, patient complained of worsening leg swelling and redness along with pain. No chest pain. Usual shortness of breath. No fluid retention as per patient. No fever, no chills. Family unhappy with patient's feet. 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 Ceftriaxone administered at the ER for cellulitis. 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 Admission Exam Per Admitting Provider GENERAL: Comfortable, obese, masklike facies, no respiratory distress SKIN: Normal color, warm HEENT: Alopecia, Toyei palpebral conjunctivae, no ptosis, dry buccal mucosa NECK : Supple, no tenderness CHEST : Decreased breath sounds, no tenderness HEART : RRR, no obvious murmurs ABDOMEN: Some distention, nontender EXTREMITIES : Bilateral LE swelling with minimal tenderness, erythematous patches over the legs, dystrophic toenails, dry cracking skin on lateral and plantar aspects of the feet NEUROLOGIC : Coherent, no facial asymmetry, rest tremors right upper extremity, gait and stance not assessed Principal Diagnosis BLE cellulitis Acute on chronic heart failure with preserved ejection fraction Acute kidney injury Discharge Exam GENERAL: Alert and oriented x3. NAD, on RA. Ill looking. HEENT: No pallor, no icterus. Pupils equal, round and reactive to light. Oral mucosa moist. NECK: No JVD, no neck masses. HEART: S1 and S2 heard. Regular rate and rhythm. No murmur, no gallop. RESPIRATORY SYSTEM: Normal AP diameter. No accessory muscle use. No wheezing, b/b crackles minimal ABDOMEN: Soft, bowel sounds present, nontender, no distention. CENTRAL NERVOUS SYSTEM: No facial droop. Speech is clear. Obeys simple commands. Moves extremities. EXTREMITIES: BLE 1 to 2+ edema, erythema noted in earlier notes seems improved. B/l resting hand tremors noted. Discharge Data Allergies Allergy/AdvReac Type Severity Reaction Status Date / Time UNKNOWN ANTIBIOTIC AdvReac Severe GI SYMPTOMS Uncoded 08/11/21 20:52 Consultations 08/11/21 19:07 ED Decision to Admit Stat 08/11/21 21:51 Consult Health Information Management Routine 08/12/21 06:20 Consult Podiatry Routine 08/12/21 13:04 Consult Nephrology Routine 08/13/21 12:35 Consult Health Information Management Routine 08/15/21 08:00 Consult Cardiology Routine Ordered Studies 08/11/21 16:22 US venous doppler LE BI Stat 08/11/21 16:30 US arterial duplex LE BI Stat 08/12/21 19:26 US renal/blad retro comp Routine Hospital Course (1) Cellulitis: 76 yo gentle man with complex PMH and noncompliance to diuresis as outpatient was managed for the following: #. BLE edema #. Acute on chronic HFpEF #. 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 Admitting Doppler BLE: Negative for DVT Admitting arterial scan lower extremity: PVD with no sonographic evidence of high-grade stenosis or focal vaso-occlusion. Admitting blood culture: No growth 08/12/2021 echo: EF 55 to 60%, grade 2 diastolic dysfunction Lower extremity edema has chronic component [given the skin changes] on top of acute changes, possibly underlying lymphedema and worsened with poor mobility and non compliance with OP lasix. Patient elevating legs today, and reports improving BLE edema Per Nephro, lasix increased to 80 mg bid, with kcl 20 mg bid Creatinine stable around 2, likely new baseline. Patient will need nephrology follow-up in 1 to 2 weeks upon discharge. Pt made aware. BLE erythema has improved, patient is status post doxycycline treatment Podiatry on board Toenail care was done by podiatry - Follow up in 3 months #. ACUTE KIDNEY INJURY Creatinine increased from 1.4 to 2.2 to 2.3 Possible related to diuretic ( lasix 60mg ) in the setting of hypotension (BP was 80/44), underling foot cellulitis Nephrology evaluated, likely the new baseline is around 1.8-2 Lasix dose optimized, follow-up with nephrology as an outpatient. Amlodipine discontinued upon Discharge, lisinopril held at discharge will need eval by PCP or Nephro as OP to resume lisinopril. continue to hold lisinopril till seen by PCP/Nephrology. #. Other chronic medical conditions: COPD, HTN, hyperglycemia [A1c of 6.1 this admission] Continue with/resume home medications as and when appropriate. Hold amlod and lisinopril (see above) #. Right arm pain/weakness Shoulder and humerus x-ray: No fracture, patient declined MRI per prior attending Outpatient follow-up with PCP/orthopedics if needed #. Right hand tremors Patient has shuffling gait as per family Per prior attending, patient will need outpatient neurology follow-up for appropriate evaluation after this acute phase is resolved. #. DVT prophylaxis: Heparin subcu #. CODE STATUS: Full code #. Disposition: PT/OT, patient has got bed at [facility], will evaluate him again tomorrow for possible discharge. 08/20: Talked with patient's son Jin over the phone, explained the current status of the patient and need for ongoing treatment of his lower extremity edema which is both acute and chronic component. He will need to be compliant with Lasix as an outpatient and will need follow-up with nephrology. Also he will need follow-up with neurology as an outpatient for his history of shuffling gait. Answered all his questions, he voiced understanding and was agreeable to the plan of care. Patient is being discharged to [facility] with following instructions at the point of discharge: Follow-up with your primary care physician within 1 week time. Follow-up with your kidney doctor in 1 to 2 weeks time upon discharge as discussed at the bedside. Maintain heart healthy and low-sodium [2 g] diet and fluid restriction of 1800 mL/day. Take your diuretics as prescribed. Get your blood work CBC and CMP done in a week time upon discharge. Have the results forwarded to your PCP and kidney doctor. As discussed at the bedside: Maintain compression bandages to bilateral lower extremity, elevate your legs, avoid dangling your legs down the bed or chair for prolonged time, continue with physical therapy as an outpatient. Follow-up with the loan auditor as an outpatient in 3 months. Your lisinopril has been held upon discharge, you will need evaluation by PCP or nephrology prior to resuming your lisinopril. Your amlodipine has been stopped because of your lower extremity edema. You need outpatient follow-up with neurology for evaluation and management of your hand tremor. Take medications as prescribed. Total Time Total Time Spent Total Time Spent (In Minutes): 40 Discharge Plan Discharge Items Patient Disposition: Transfer Inpatient Rehab Fac Reason For Visit: SOB, CELLULITIS Discharge Diagnosis: BLE cellulitis Acute on chronic heart failure with preserved ejection fraction Acute kidney injury Condition on Discharge: Fair Activity: Resume your previous activity Non-emergency contact: Primary Care Provider Call non-emergency contact if: you have any medication questions, your symptoms worsen, your pain is not controlled and your temperature is above 101 Follow-up/Referrals: Celeste Rahman, [Primary Care Provider] - Diet: Carb Consistent or DM2, Heart Healthy and Low Sodium (2gm) Fluids: 1800ml (7 cups) Addtl Attending Provider Instructions: Follow-up with your primary care physician within 1 week time. Follow-up with your kidney doctor in 1 to 2 weeks time upon discharge as discussed at the bedside. Maintain heart healthy and low-sodium [2 g] diet and fluid restriction of 1800 mL/day. Take your diuretics as prescribed. Get your blood work CBC and CMP done in a week time upon discharge. Have the results forwarded to your PCP and kidney doctor. As discussed at the bedside: Maintain compression bandages to bilateral lower extremity, elevate your legs, avoid dangling your legs down the bed or chair for prolonged time, continue with physical therapy as an outpatient. Follow-up with the loan auditor as an outpatient in 3 months. Your lisinopril has been held upon discharge, you will need evaluation by PCP or nephrology prior to resuming your lisinopril. Your amlodipine has been stopped because of your lower extremity edema. You need outpatient follow-up with neurology for evaluation and management of your hand tremor. Take medications as prescribed. Pending Studies at Discharge: No Stand-Alone Forms: My [facility] Skilled Items Patient informed of condition?: Yes DNR: No Discharge Level of Care: Acute rehab Communicable Disease: No Discharge Prognosis: Stable Lines: None Urinary Catheter: No Medications and DC Order Prescriptions: New acetaminophen 325 mg Tablet 650 mg PO Q6H PRN (Reason: fever or pain) Qty: 90 RF: 0 aspirin 81 mg Tablet,Delayed Release (Dr/Ec) 81 mg PO QAM Qty: 30 RF: 0 tramadol 50 mg Tablet 25 mg PO Q6H PRN (Reason: severe pain (scale score 7-10)) Qty: 7 RF: 0 furosemide 80 mg Tablet 80 mg PO BID17 Qty: 60 RF: 0 potassium chloride 20 mEq Tablet,Er Particles/Crystals 20 meq PO BID Qty: 60 RF: 0 sennosides-docusate sodium [Senokot-S] 8.6-50 mg Tablet 1 tab PO QAM Qty: 14 RF: 0 polyethylene glycol 3350 [Miralax] 17 gram Powder In Packet 17 g PO DAILY PRN (Reason: constipation) Qty: 14 RF: 0 Lac-Hydrin Five 5 % Lotion 1 applic EXT BID Qty: 226 RF: 0 Continued tamsulosin 0.4 mg capsule 0.4 mg PO DAILY RF: 0 brimonidine 0.2 % drops 1 drp OPB BID RF: 0 dorzolamide-timolol 22.3-6.8 mg/mL drops 1 drp OPB BID RF: 0 metoprolol tartrate 25 mg tablet 25 mg PO BID RF: 0 Trelegy Ellipta 100-62.5-25 mcg blister with device 1 ea INHALATION DAILY RF: 0 Discontinued lisinopril 20 mg tablet 20 mg PO DAILY RF: 0 amlodipine 10 mg tablet 10 mg PO DAILY RF: 0 furosemide 20 mg tablet 20 mg PO DAILY PRN (Reason: Edema) RF: 0 Krames/Other Patient Handouts: Prediabetes, 5 Steps for Eating Healthier Admission Data Admit Date/Time: 08/12/21 19:25 Attending Provider: Dominick Torres Admit Provider: Bill Torres Primary Care Provider: Celeste Rahman Other Providers: Jose Easley ; Wendi Miller ; Lani Gaspar ; [facility] ; Angel Vázquez ; Jc Ely ; Emeka Romero ; Ash Weston ; Skyler Trejo ; Lawrence Betancur ; Elham Gonzalez ; Anjali Pabon ; Hortencia Bejarano ; Mars Archibald
== END 2021-08-22 16:35 | DRG 602 ==
LOC: 2N 15:50 → ED 15:50 → 2N 23:09 → SUATTDRO 08-12 19:25